=== PATIENT | male | born 1990 | race Caucasian/White ===

== ENCOUNTER → 2023-07-28 | Outpatient (CLI) | payer BC, SELFPAY ==
[2023-07-28 10:46] LABS: Anion Gap 0 (5-15); BUN 19 mg/dL (7-18); BUN/Creat Ratio 14.5 RATIO (10-20); Chloride 107 mmol/L (98-107); Creatinine, Serum 1.31 mg/dL (0.70-1.30); EST Glomerular Filtration Rate 68 mL/min (>60); Est Glom Filt Rate - Afr Amer 82 mL/min (>60); Glucose 109 mg/dL (74-106); Magnesium 2.1 mg/dL (1.6-2.6); Potassium 4.1 mmol/L (3.5-5.1); Sodium Level 136 mmol/L (136-145)
== END | disposition home or self-care (01) ==
LOC: MFPLAB 09:13
PROVIDERS: PCP Family Medicine; Visit Provider Family Medicine
DX: R25.2 Cramp and spasm (principal)
CPT/HCPCS: 36415; 80048; 83735

== ENCOUNTER → 2023-10-12 | Outpatient (CLI) | payer BC, SELFPAY ==
--- OUTSIDE RECORDS SUMMARY | 2023-10-12 11:54 | XMS RPT_ITS | CCD ---
Author Name Unknown Address [address] [place] [address] Organization [facility] Results Test Name Value Interpretation Reference Range Facil ity Encounters Encounter Date Encounter Type Care Provider Facility Start: 07-29-2017 End: 07-31-2017 Ambulatory [facility] Summary Purpose Family History No Family History Records Found Advance Directives No Advanced Directives Records Found Additional Source Comments (unrecognized sect ion and content) No Status Records Found INFORMATION SOURCE (unrecogn ized section and content) FOR RECORDS PERTAINING TO PATIENTS WHO ARE OR HAVE BEEN ENROLLED IN A CHEMICAL DEPENDENCY/SUBSTANCEABUSE PROGRAM, SOME INFORMATION MAY BE OMITTED. This clinical summary was aggregated from multiple sources. Caution should be exercised in using it in the provision of clinical care. This summary normalizes information from multiple sources, and as a consequence, information in this document may materially change the coding, format and clinical context of patient data. In addition, data may be omitted in some cases. CLINICAL DECISIONS SHOULD BE BASED ON THE PRIMARY CLINICAL RECORDS. [facility] [employer] provides no warranty or guarantee of the accuracy or completeness of information in this document.
[2023-10-12 12:49] LABS: Erythrocyte Sedimentation Rate 6 mm/hr (0-20)
[2023-10-12 12:52] LABS: Absolute Lymphocyte Count 1.74 X10^3/uL (0.83-4.51); Absolute Neutrophil Count 3.3 X10^3/uL (2.0-7.7); Basophil# 0.08 X10^3/uL; Basophil% 1.2 % (0-1); Eosinophil# 1.05 X10^3/uL; Eosinophils% 15.2 % (0-5); Hematocrit 46.1 % (40-54); Hemoglobin 16.2 g/dL (13.0-16.5); Lymphocyte # 1.74 X10^3/ul (0.83-4.51); Lymphocyte % 25.2 % (19-41); Mean Corp Hgb Conc 35.1 g/dL (32-36); Mean Corpuscular Hgb 31.6 pg (27.0-32.0); Mean Platelet Vol. 9.4 fl (6.2-12.0); Monocyte# 0.71 X10^3/uL; Monocyte% 10.3 % (0-10); NRBC Flagged by Analyzer 0 % (0-5); Neutrophil # 3.31 X10^3/uL (2.7-7.7); Neutrophil % 47.8 % (47-70); Platelet Count 264 K/mm3 (150-450); RBC Distribution Width CV 12.4 % (11.6-14.6); RBC Distribution Width SD 41.1 fl (35.1-43.9); Red Blood Count 5.12 M/mm3 (4.6-6.2); White Blood Count 6.9 K/mm3 (4.4-11.0)
[2023-10-12 13:42] LABS: AST(SGOT) 18 U/L (15-37); Alanine Aminotransfer ALT/SGPT 32 U/L (16-61); Albumin, Serum 3.6 g/dL (3.2-5.0); Alkaline Phosphatase 72 U/L (45-117); Anion Gap 4 (5-15); BUN 17 mg/dL (7-18); Calcium,Total 8.4 mg/dL (8.5-10.1); Chloride 109 mmol/L (98-107); Creatinine, Serum 1.31 mg/dL (0.70-1.30); EST Glomerular Filtration Rate 68 mL/min (>60); Est Glom Filt Rate - Afr Amer 82 mL/min (>60); Globulin 3.7 g/dL (2.2-4.2); Glucose 113 mg/dL (74-106); Protein, Total 7.3 g/dL (6.4-8.2); Sodium Level 139 mmol/L (136-145); Thyroid Stim Hormone (TSH) 1.67 uIU/mL (0.358-3.74)
[2023-10-13 15:08] LABS: Deamidated Gliadin IgA 7 units (0-19); Deamidated Gliadin IgG 2 units (0-19); Endomysial Antibody IgA Negative (Negative); Immunoglobulin A 202 mg/dL (90-386); t-Transglutaminase IgA <2 U/mL (0-3)
== END | disposition home or self-care (01) ==
LOC: MFPLAB 11:31
PROVIDERS: PCP Family Medicine; Visit Provider Family Medicine
DX: R19.7 Diarrhea, unspecified (principal)
CPT/HCPCS: 36415; 80053; 82784; 83516; 84443; 85025; 85652; 86255

== ENCOUNTER → 2023-10-18 | Outpatient (CLI) | payer BC, SELFPAY ==
--- OUTSIDE RECORDS SUMMARY | 2023-10-18 09:20 | XMS RPT_ITS | CCD ---
Author Name Unknown Address [address] [place] [address] Organization [facility] Results Test Name Value Interpretation Reference Range Facil ity Encounters Encounter Date Encounter Type Care Provider Facility Start: 07-29-2017 End: 07-31-2017 Ambulatory [facility] Summary Purpose Family History No Family [...] BE BASED ON THE PRIMARY CLINICAL RECORDS. [facility] [employer] provides no warranty or guarantee of the accuracy or completeness of information in this document.
[2023-10-23 22:07] LABS: Pancreatic Elastase, Fecal < 50 (>200)
== END | disposition home or self-care (01) ==
LOC: MFPLAB 08:49
PROVIDERS: Family Medicine; PCP Family Medicine; Visit Provider Family Medicine
DX: R19.7 Diarrhea, unspecified (principal)
CPT/HCPCS: 82274; 82653; 87506

== ENCOUNTER → 2024-01-18 | Outpatient (CLI) | payer BC, SELFPAY ==
[2024-01-20 16:09] LABS: Giardia Lamblia, Stool EIA Negative (Negative)
== END | disposition home or self-care (01) ==
PROVIDERS: PCP Family Medicine; Referring Provider Internal Medicine Gastroenterology; Visit Provider Internal Medicine Gastroenterology
DX: R19.7 Diarrhea, unspecified (principal)
CPT/HCPCS: 87329; 87493

== ENCOUNTER → 2024-02-02 | Outpatient (CLI) | payer BC, SELFPAY ==
[2024-02-02 13:06] LABS: AST(SGOT) 19 U/L (15-37); Alanine Aminotransfer ALT/SGPT 24 U/L (16-61); Albumin, Serum 3.4 g/dL (3.2-5.0); Alkaline Phosphatase 73 U/L (45-117); Bilirubin, Direct 0.13 mg/dL (0.00-0.30); Globulin 3.9 g/dL (2.2-4.2); Protein, Total 7.3 g/dL (6.4-8.2)
== END | disposition home or self-care (01) ==
LOC: LAB.FUTURE 11:12
PROVIDERS: PCP Family Medicine; Visit Provider Internal Medicine Gastroenterology
DX: K51.90 Ulcerative colitis, unspecified, without complications (principal)
CPT/HCPCS: 36415; 80076; 86480

== ENCOUNTER → 2025-05-14 | Outpatient (CLI) | payer BC, SELFPAY ==
[2025-05-14 18:07] LABS: AST(SGOT) 18 U/L (<=37); Alanine Aminotransfer ALT/SGPT 18 U/L (<=46); Albumin, Serum 4.2 g/dL (3.5-5.0); Alkaline Phosphatase 72 U/L (40-129); Anion Gap 12 (5-15); BUN 17 mg/dL (4-19); BUN/Creat Ratio 14.0 RATIO (10-20); Calcium,Total 8.9 mg/dL (7.6-11.0); Carbon Dioxide 23.4 mmol/L (21.0-32.0); Chloride 104 mmol/L (98-108); Globulin 2.9 g/dL (2.2-4.2); Glucose 85 mg/dL (70-99); Potassium 4.3 mmol/L (3.3-5.1)
[2025-05-14 18:08] LABS: Hematocrit 44.2 % (40-54); Hemoglobin 15.7 g/dL (13.0-16.5); Mean Corp Hgb Conc 35.5 g/dL (32-36); Mean Corpuscular Volume 90.8 fL (80-94); Mean Platelet Vol. 9.8 fl (6.2-12.0); Platelet Count 269 K/mm3 (150-450); RBC Distribution Width CV 12.6 % (11.6-14.6); RBC Distribution Width SD 41.2 fl (35.1-43.9); Red Blood Count 4.87 M/mm3 (4.6-6.2); White Blood Count 7.7 K/mm3 (4.4-11.0)
[2025-05-14 18:13] LABS: CRP < 3.00 mg/L (0.0-3.0)
== END | disposition home or self-care (01) ==
PROVIDERS: PCP Family Medicine; Referring Provider Internal Medicine Gastroenterology; Visit Provider Internal Medicine Gastroenterology
DX: K50.90 Crohn's disease, unspecified, without complications (principal); M54.9 Dorsalgia, unspecified
CPT/HCPCS: 36415; 80053; 81374; 85027; 85652; 86140

== ENCOUNTER → 2025-06-06 | Outpatient (CLI) | payer BC, SELFPAY ==
[2025-06-06 15:34] LABS: Hematocrit 45.3 % (40-54); Hemoglobin 15.6 g/dL (13.0-16.5); Immature Granulocytes Count 0.030 X10^3/uL (0.0-0.0); Mean Corp Hgb Conc 34.4 g/dL (32-36); Mean Corpuscular Volume 92.8 fL (80-94); Mean Platelet Vol. 9.1 fl (6.2-12.0); NRBC Flagged by Analyzer 0 % (0-5); Platelet Count 257 K/mm3 (150-450); RBC Distribution Width CV 13.3 % (11.6-14.6); RBC Distribution Width SD 45.5 fl (35.1-43.9); Red Blood Count 4.88 M/mm3 (4.6-6.2); White Blood Count 8.4 K/mm3 (4.4-11.0)
[2025-06-06 15:52] LABS: AST(SGOT) 20 U/L (<=37); Alanine Aminotransfer ALT/SGPT 20 U/L (<=46); Albumin, Serum 4.0 g/dL (3.5-5.0); Alkaline Phosphatase 61 U/L (40-129); Anion Gap 11 (5-15); BUN 22 mg/dL (4-19); BUN/Creat Ratio 19.0 RATIO (10-20); Calcium,Total 8.7 mg/dL (7.6-11.0); Carbon Dioxide 24.1 mmol/L (21.0-32.0); Chloride 107 mmol/L (98-108); Globulin 2.7 g/dL (2.2-4.2); Glucose 101 mg/dL (70-99); Potassium 4.0 mmol/L (3.3-5.1)
[2025-06-06 15:53] LABS: CRP < 3.00 mg/L (0.0-3.0)
[2025-06-11 17:08] LABS: Anti-Chromatin <0.2 AI (0.0-0.9); Anti-Jo <0.2 AI (0.0-0.9); Anti-dsDNA Ab <1 IU/mL (0-9); Egg, Whole <0.10 kU/L (Class 0); Mussels <0.10 kU/L (Class 0); SJOGREN'S Anti-SS-A test < 0.2 AI (0.0-0.9); SJOGREN'S Anti-SS-B test < 0.2 AI (0.0-0.9)
[2025-06-12 13:08] LABS: ACCA 26 units (0-90); ALCA 18 units (0-60); AMCA 71 units (0-100); Cytoplasmic Ab (C-ANCA) <1:20 titer (Neg:<1:20); Immunoglobulin A 181 mg/dL (90-386); Immunoglobulin G 965 mg/dL (603-1613); Immunoglobulin M 134 mg/dL (20-172); Perinuclear Ab (P-ANCA) <1:20 titer (Neg:<1:20); QNTFERON TB Mitogen Value > 10.00 IU/mL (.); QNTFERON TB Nil Value 0.03 IU/mL (.); QNTFERON TB1+ Ag Value 0.03 IU/mL (.); QNTFERON TB2+ Ag Value 0.03 IU/mL (.); QNTIFERON TB Positive Criteria Negative (Negative)
== END | disposition home or self-care (01) ==
PROVIDERS: PCP Family Medicine; Referring Provider Internal Medicine Gastroenterology; Visit Provider Internal Medicine Gastroenterology
DX: K51.90 Ulcerative colitis, unspecified, without complications (principal)
CPT/HCPCS: 36415; 80053; 82784; 82785; 83516; 85025; 85652; 86003; 86005; 86036; 86037; 86140; 86225; 86235; 86255; 86480; 86671

== ENCOUNTER → 2025-06-13 | Outpatient (CLI) | payer BC, SELFPAY | END | disposition home or self-care (01) | LOC: LABSPEC 15:17 | PROVIDERS: PCP Family Medicine; Referring Provider Internal Medicine Gastroenterology; Visit Provider Internal Medicine Gastroenterology | DX: K51.90 Ulcerative colitis, unspecified, without complications (principal) | CPT/HCPCS: 83630; 87493 ==

== ENCOUNTER → 2025-06-21 | Outpatient (CLI) | payer BC, SELFPAY ==
--- OUTSIDE RECORDS SUMMARY | 2025-06-21 11:52 | XMS RPT_ITS | CCD ---
Author Organization [facility] Care Team Providers Care Drivers' Cash Clerk Name Role Phone Unavailable Primary Care Provider UnavailJUSTIN Solorzano Attending Unavailable Rodriguez KATHLEEN, Dr. Salinas Primary Care Provider Daisy KATHLEEN, Dr. Louise Attending Provider Daisy KATHLEEN, Dr. Louise Referring Provider Rodriguez KATHLEEN, Dr. Salinas Primary Care Physicia n Daisy KATHLEEN, Dr. Louise Attending Physician Dr. Channing Bains DO Attending Physician [phone] Dr. Brad Frias MD Referring Provider Dr. Channing Bains DO Referring Provider Dani Villa Attending Unavailable Dani Villa Referring Unavailable Brad Frias Primary Care Unavailable Channing Bains Attending Unavailable Channing Bains Referring Unavailable Brad Frias Primary Care Unavailable Channing Bains Attending Unavailable Channing Bains Referring Unavailable Brad Frias Primary Care Unavailable Brad Frias Referring Unavailable Channing Bains Attending Unavailable Brad Frias Primary Care Unavailable Medications Current Medications Medication Drug Class(es) Dates Sig (Normalized) Sig (Original) atropine sulfate 0.025 mg / diphenoxylate hydrochloride 2.5 mg oral tablet (4 sources) Anticholinergic, Cholinergic Muscarinic Antagonist, Antidiarrheal Start: 06-06-2025 End: 06-06-2025 budesonide 3 mg delayed release oral capsule (2 sources) Corticosteroid Start: 06-06-2025 take 3 capsules by mouth once daily mesalamine 1200 mg delayed release oral tablet (2 sources) Aminosalicylate Start: 06-06-2025 take 3 tablets by mouth once daily predniSONE 10 mg oral tablet (3 sources) Start: 06-06-2025 take 5 tablets by mouth once daily Start: 04-17-2025 predniSONE (DE LTASONE) 10 mg tablet Take 4 tabs daily for 3 days, then 2 tabs daily for 3 days, then 1 tab daily for 3 days with food. 21 tablet 04/17/2025 Active triamcinolone acetonide 1 mg/ml topical cream (1 source) Corticosteroid Start: 04-17-2025 End: 04-24-2025 triamcinolone acetonide (KENALOG) 0.1 % cream Apply 1 application to affected area three times a day for 7 days. Apply sparingly to area for rash/itching. 80 g 04/17/2025 04/24/2025 Active Problems Problem Classification Problem Date Documented Da te Episodic/Chronic Other gastrointestinal disorders (1 source) Irritable bowel syndrome without diarrhea; Translations: [Irritable bowel syndrome, unspecified] Onset: 06-13-2025 Chronic Other skin disorders (1 source) Eruption; Translations: [Rash and other nonspecific skin eruption] 04-17-2025 Episodic Other skin disorders (1 source) Rash and other nonspecific skin eruption; Translations: [Rash] Onset: 04-17-2025 Episodic Regional enteritis and ulcerative colitis (7 sources) Ulcerative colitis; Translations: [Ulcerative colitis, unspecified, without complications] Onset: 05-23-2025 06-06-2025 Chronic Results Test Name Value Interpretation Reference Range Facility CDIFF (PCR)on 06-13-2025 CDIFF Pending [id number] Presumptive Negative *for epidemiolologic???use C. Diff PCR Negative- No toxigenic C. Diff Detected Normal [facility] Comment on above: Performed By: #### L 3400.8000, L3200.1100, L100.0100, L3300.1200, L101.9900, L501.6710, L3100.5440, L5500.0550, L500.4050, L3410.2400, L2100.0000 #### [facility] [address] [place], [address] Clostridium difficile detect ion by polymerase chain reactionOrdered By: Channing Bains on 06-13-2025 C. difficile DNA SIDDHARTH+probe Ql (Unsp spec) [facility] Stool Lactoferrin/WBCon 05-20 WBCST Normal Reference Range = Negative Fecal WBC Lactoferrin A Positive: Fecal WBC Lactoferrin present A Normal [facility] Comment on above: Performed By: #### L 3400.8000, L3200.1100, L100.0100, L3300.1200, L101.9900, L501.6710, L3100.5440, L5500.0550, L500.4050, L3410.2400, L2100.0000 #### [facility] [address] [place], [address] Stool lactoferrin detection by immunoassayOrdered By: Channing Bains on 06-13-2025 Lactoferrin IA Ql (Stl) [facility] ANCAon 06-12-2025 Atypical pANCA <1:20 Normal Neg:<1:20 [facility] Comment on above: Result Comment: The atypical pANCA pattern has been observed in a significant percentage of patients with ulcerative colitis, primary sclerosing cholangitis and autoimmune hepatitis. Performed at: [facility] [address] [id number] Language Teacher: Dani Tyson PhD, Phone: [phone] Performed at: [facility] [address] [id number] Language Teacher: Fortunato Floyd MD, Phone: [phone] Performed By: #### L 3400.8000, L3200.1100, L100.0100, L3300.1200, L101.9900, L501.6710, L3100.5440, L5500.0550, L500.4050, L3410.2400, L2100.0000 #### [facility] [address] [place], [address] Cytoplasmic Ab <1:20 Normal Neg:<1:20 [facility] Comment on above: Performed By: #### L 3400.8000, L3200.1100, L100.0100, L3300.1200, L101.9900, L501.6710, L3100.5440, L5500.0550, L500.4050, L3410.2400, L2100.0000 #### [facility] [address] [place], [address] Perinuclear Ab. <1:20 Normal Neg:<1:20 [facility] Comment on above: Result Comment: The presence of positive fluorescence exhibiting P-ANCA or C-ANCA patterns alone is not specific for the diagnosis of Mayito's Granulomatosis (WG) or microscopic polyangiitis. Decisions about treatment should not be based solely on ANCA IFA results. The [employer] ANCA [employer] Consensus recommends follow up testing of positive sera with both OK- 3 and MPO-ANCA enzyme immunoassays. As many as 5% serum samples are positive only by EIA. Ref. AM J Clin Pathol 1999;111:507-513. Performed By: #### L 3400.8000, L3200.1100, L100.0100, L3300.1200, L101.9900, L501.6710, L3100.5440, L5500.0550, L500.4050, L3410.2400, L2100.0000 #### [facility] [address] [place], [address] Celiac Disease Profileon ENDOMYSIAL IGA Negative Normal Negative [facility] Comment on above: Performed By: #### L 3400.8000, L3200.1100, L100.0100, L3300.1200, L101.9900, L501.6710, L3100.5440, L5500.0550, L500.4050, L3410.2400, L2100.0000 #### [facility] [address] [place], [address] tTG IGA <2 Normal 0-3 [facility] Comment on above: Result Comment: Nega tive 0 - 3 Weak Positive 4 - 10 Positive >10 Tissue Transglutaminase (tTG) has been identified as the endomysial antigen. Studies have demonstr- ated that endomysial IgA antibodies have over 99% specificity for gluten sensitive enteropathy. Performed By: #### L 3400.8000, L3200.1100, L100.0100, L3300.1200, L101.9900, L501.6710, L3100.5440, L5500.0550, L500.4050, L3410.2400, L2100.0000 #### [facility] [address] [place], [address] Immunoglobulins G/A/M/Jose IMMUNOGLOB A QN 181 mg/dL Normal 90-386 [facility] Comment on above: Order Comment: N Performed By: #### L 3400.8000, L3200.1100, L100.0100, L3300.1200, L101.9900, L501.6710, L3100.5440, L5500.0550, L500.4050, L3410.2400, L2100.0000 #### [facility] [address] [place], [address] IMMUNOGLOB E QN 26 IU/mL Normal 6-495 [facility] Comment on above: Order Comment: N Performed By: #### L 3400.8000, L3200.1100, L100.0100, L3300.1200, L101.9900, L501.6710, L3100.5440, L5500.0550, L500.4050, L3410.2400, L2100.0000 #### [facility] [address] [place], [address] IMMUNOGLOB G QN 965 mg/dL Normal 603-1613 [facility] Comment on above: Order Comment: N Performed By: #### L 3400.8000, L3200.1100, L100.0100, L3300.1200, L101.9900, L501.6710, L3100.5440, L5500.0550, L500.4050, L3410.2400, L2100.0000 #### [facility] [address] [place], [address] IMMUNOGLOB M QN 134 mg/dL Normal 20-172 [facility] Comment on above: Order Comment: N Performed By: #### L 3400.8000, L3200.1100, L100.0100, L3300.1200, L101.9900, L501.6710, L3100.5440, L5500.0550, L500.4050, L3410.2400, L2100.0000 #### [facility] [address] [place], [place], [address] L2100.0000on 06-12-2025 ACCA 26 units Normal 0-90 [facility] Comment on above: Result Comment: Nega tive: <80 Equivocal: 80-90 Positive: >90 Performed By: #### L 3400.8000, L3200.1100, L100.0100, L3300.1200, L101.9900, L501.6710, L3100.5440, L5500.0550, L500.4050, L3410.2400, L2100.0000 #### [facility] [address] [place], [place], [address] ALCA 18 units Normal 0-60 [facility] Comment on above: Result Comment: Nega tive:<55 Equivocal: 55-60 Positive: >60 Performed By: #### L 3400.8000, L3200.1100, L100.0100, L3300.1200, L101.9900, L501.6710, L3100.5440, L5500.0550, L500.4050, L3410.2400, L2100.0000 #### [facility] [address] [place], [place], [id number] AMCA 71 units Normal 0-100 [facility] Comment on above: Result Comment: Nega tive: <90 Equivocal: 90-100 Positive: >100 This test was developed and its performance characteristics determined by [employer]. It has not been cleared or approved by the Food and Drug Administration. The FDA has determined that such clearance or approval is not necessary. Performed By: #### L 3400.8000, L3200.1100, L100.0100, L3300.1200, L101.9900, L501.6710, L3100.5440, L5500.0550, L500.4050, L3410.2400, L2100.0000 #### [facility] [address] [place], [place], [address] Atypical pANCA Negative Normal Negative [facility] Comment on above: Performed By: #### L 3400.8000, L3200.1100, L100.0100, L3300.1200, L101.9900, L501.6710, L3100.5440, L5500.0550, L500.4050, L3410.2400, L2100.0000 #### [facility] [address] [place], [address] COMMENT Comment Normal . [facility] Comment on above: Result Comment: Pema noreen is not suggestive of Inflammatory Bowel Disease Performed By: #### L 3400.8000, L3200.1100, L100.0100, L3300.1200, L101.9900, L501.6710, L3100.5440, L5500.0550, L500.4050, L3410.2400, L2100.0000 #### [facility] [address] [place], [place], [address] Karishma 10 units Normal 0-50 [facility] Comment on above: Result Comment: Nega tive: <45 Equivocal: 45-50 Positive: >50 Performed By: #### L 3400.8000, L3200.1100, L100.0100, L3300.1200, L101.9900, L501.6710, L3100.5440, L5500.0550, L500.4050, L3410.2400, L2100.0000 #### [facility] [address] [place], [address] Quantiferon TB-Gold+on 06-12 QFT MITOGEN ADRIA > 10.00 Normal . [facility] Comment on above: Performed By: #### L 3400.8000, L3200.1100, L100.0100, L3300.1200, L101.9900, L501.6710, L3100.5440, L5500.0550, L500.4050, L3410.2400, L2100.0000 #### [facility] [address] [place], [place], [id number] (473) QFT NIL VALUE 0.03 IU/mL Normal . [facility] Comment on above: Performed By: #### L 3400.8000, L3200.1100, L100.0100, L3300.1200, L101.9900, L501.6710, L3100.5440, L5500.0550, L500.4050, L3410.2400, L2100.0000 #### [facility] [address] [place], [address] ([phone]) QFT TB GOLD+ Comment Normal . [facility] Comment on above: Result Comment: Jeff tiFERON-TB Gold Plus is a qualitative indirect test for M tuberculosis infection (including disease) and is intended for use in conjunction with risk assessment, radiography, and other medical and diagnostic evaluations. The QuantiFERON-TB Gold Plus result is determined by subtracting the Nil value from either TB antigen (Ag) value. The Mitogen tube serves as a control for the test. Performed By: #### L 3400.8000, L3200.1100, L100.0100, L3300.1200, L101.9900, L501.6710, L3100.5440, L5500.0550, L500.4050, L3410.2400, L2100.0000 #### [facility] [address] [place], [address] QFT TB POS CRIT Negative Normal Negative [facility] Comment on above: Result Comment: No r esponse to M tuberculosis antigens detected. Infection with M tuberculosis is unlikely, but high risk individuals should be considered for additional testing (ATS/IDSA/CDC Clinical Practice Guidelines, 2017). The reference range is an Antigen minus Nil result of <0.35 IU/mL. The specimen received for QuantiFERON testing was incubated by the ordering institution. Specific procedures outlined in our Directory of Services and in the package insert for the QuantiFERON Gold (In Tube) test must be followed to enable for proper stimulation of cells for the production of interferon gamma. Chemiluminescence immunoassay methodology Performed By: #### L 3400.8000, L3200.1100, L100.0100, L3300.1200, L101.9900, L501.6710, L3100.5440, L5500.0550, L500.4050, L3410.2400, L2100.0000 #### [facility] [address] [place], [place], [address] QFT TB1+ AG ADRIA 0.03 IU/mL Normal . [facility] Comment on above: Performed By: #### L 3400.8000, L3200.1100, L100.0100, L3300.1200, L101.9900, L501.6710, L3100.5440, L5500.0550, L500.4050, L3410.2400, L2100.0000 #### [facility] [address] [place], [place], [id number] QFT TB2+ AG ADRIA 0.03 IU/mL Normal . [facility] Comment on above: Performed By: #### L 3400.8000, L3200.1100, L100.0100, L3300.1200, L101.9900, L501.6710, L3100.5440, L5500.0550, L500.4050, L3410.2400, L2100.0000 #### [facility] [address] [place], [place], [address] ANTONIETTA Comprehensive Panelon ANTI-DNA (DS)AB <1 Normal 0-9 [facility] Comment on above: Result Comment: Nega tive <5 Equivocal 5 - 9 Positive >9 Performed By: #### L 3400.8000, L3200.1100, L100.0100, L3300.1200, L101.9900, L501.6710, L3100.5440, L5500.0550, L500.4050, L3410.2400, L2100.0000 #### [facility] [address] [place], [address] ANTI-SS-A < 0.2 Normal 0.0-0.9 [facility] Comment on above: Performed By: #### L 3400.8000, L3200.1100, L100.0100, L3300.1200, L101.9900, L501.6710, L3100.5440, L5500.0550, L500.4050, L3410.2400, L2100.0000 #### [facility] [address] [place], [address] ANTI-SS-B < 0.2 Normal 0.0-0.9 [facility] Comment on above: Performed By: #### L 3400.8000, L3200.1100, L100.0100, L3300.1200, L101.9900, L501.6710, L3100.5440, L5500.0550, L500.4050, L3410.2400, L2100.0000 #### [facility] [address] [place], [address] Allergen, Food Profile 1406-11-2025 BEEF <0.10 Normal Class 0 [facility] Comment on above: Performed By: #### L 3400.8000, L3200.1100, L100.0100, L3300.1200, L101.9900, L501.6710, L3100.5440, L5500.0550, L500.4050, L3410.2400, L2100.0000 #### [facility] [address] [place], [address] CHOCOLATE <0.10 Normal Class 0 [facility] Comment on above: Performed By: #### L 3400.8000, L3200.1100, L100.0100, L3300.1200, L101.9900, L501.6710, L3100.5440, L5500.0550, L500.4050, L3410.2400, L2100.0000 #### [facility] [address] [place], [address] CODFISH <0.10 Normal Class 0 [facility] Comment on above: Performed By: #### L 3400.8000, L3200.1100, L100.0100, L3300.1200, L101.9900, L501.6710, L3100.5440, L5500.0550, L500.4050, L3410.2400, L2100.0000 #### [facility] [address] [place], [address] COMMENT Comment Normal . [facility] Comment on above: Result Comment: Miguel lewis of Specific IgE Class Description of Class ----- < 0.10 0 Negative 0.10 - 0.31 0/I Equivocal/Low 0.32 - 0.55 I Low 0.56 - 1.40 II Moderate 1.41 - 3.90 III High 3.91 - 19.00 IV Very High 19.01 - 100.00 V Very High >100.00 Very High Performed By: #### L 3400.8000, L3200.1100, L100.0100, L3300.1200, L101.9900, L501.6710, L3100.5440, L5500.0550, L500.4050, L3410.2400, L2100.0000 #### [facility] [address] [place], [address] CORN <0.10 Normal Class 0 [facility] Comment on above: Performed By: #### L 3400.8000, L3200.1100, L100.0100, L3300.1200, L101.9900, L501.6710, L3100.5440, L5500.0550, L500.4050, L3410.2400, L2100.0000 #### [facility] [address] [place], [place], [id number] EGG, WHOLE <0.10 Normal Class 0 [facility] Comment on above: Result Comment: Perf ormed at: [facility] [address] [id number] Language Teacher: Dani Tyson PhD, Phone: [phone] Performed at: [facility] [address] [id number] Language Teacher: Fortunato Floyd MD, Phone: [phone] Performed By: #### L 3400.8000, L3200.1100, L100.0100, L3300.1200, L101.9900, L501.6710, L3100.5440, L5500.0550, L500.4050, L3410.2400, L2100.0000 #### [facility] [address] [place], [place], [id number] MILK (COW) 0.14 kU/L Abnormal Class 0/I [facility] Comment on above: Performed By: #### L 3400.8000, L3200.1100, L100.0100, L3300.1200, L101.9900, L501.6710, L3100.5440, L5500.0550, L500.4050, L3410.2400, L2100.0000 #### [facility] [address] [place], [place], [address] MUSSELS <0.10 Normal Class 0 [facility] Comment on above: Performed By: #### L 3400.8000, L3200.1100, L100.0100, L3300.1200, L101.9900, L501.6710, L3100.5440, L5500.0550, L500.4050, L3410.2400, L2100.0000 #### [facility] [address] [place], [place], [address] PEANUT <0.10 Normal Class 0 [facility] Comment on above: Performed By: #### L 3400.8000, L3200.1100, L100.0100, L3300.1200, L101.9900, L501.6710, L3100.5440, L5500.0550, L500.4050, L3410.2400, L2100.0000 #### [facility] [address] [place], [place], [id number] PORK <0.10 Normal Class 0 [facility] Comment on above: Performed By: #### L 3400.8000, L3200.1100, L100.0100, L3300.1200, L101.9900, L501.6710, L3100.5440, L5500.0550, L500.4050, L3410.2400, L2100.0000 #### [facility] [address] [place], [place], [id number] SALMON <0.10 Normal Class 0 [facility] Comment on above: Performed By: #### L 3400.8000, L3200.1100, L100.0100, L3300.1200, L101.9900, L501.6710, L3100.5440, L5500.0550, L500.4050, L3410.2400, L2100.0000 #### [facility] [address] [place], [place], [id number] SHRIMP <0.10 Normal Class 0 [facility] Comment on above: Performed By: #### L 3400.8000, L3200.1100, L100.0100, L3300.1200, L101.9900, L501.6710, L3100.5440, L5500.0550, L500.4050, L3410.2400, L2100.0000 #### [facility] [address] [place], [place], [id number] SOYBEAN <0.10 Normal Class 0 [facility] Comment on above: Performed By: #### L 3400.8000, L3200.1100, L100.0100, L3300.1200, L101.9900, L501.6710, L3100.5440, L5500.0550, L500.4050, L3410.2400, L2100.0000 #### [facility] [address] [facility] [place], [place], [address] TUNA <0.10 Normal Class 0 [facility] Comment on above: Performed By: #### L 3400.8000, L3200.1100, L100.0100, L3300.1200, L101.9900, L501.6710, L3100.5440, L5500.0550, L500.4050, L3410.2400, L2100.0000 #### [facility] [address] [facility] [place], [place], [id number] WHEAT 0.14 kU/L Abnormal Class 0/I [facility] Comment on above: Performed By: #### L 3400.8000, L3200.1100, L100.0100, L3300.1200, L101.9900, L501.6710, L3100.5440, L5500.0550, L500.4050, L3410.2400, L2100.0000 #### [facility] [address] [place], [place], [id number] Absolute lymphocyte countOrd ered By: Channing Bains on 06-06-2025 Lymphocytes Auto (Unsp spec) [#/Vol] 1.09 10*3/uL 0.83-4.51 [facility] Absolute neutrophil countOrd ered By: Channing Bains on 06-06-2025 Neutrophils (Bld) [#/Vol] 6.1 10*3/uL 2.0-7.7 [facility] Anion gap in Serum or Plasma Ordered By: Channing Bains on 06-06-2025 Anion gap [Moles/Vol] 11 mmol/L 5-15 [facility] Automated lymphocyte count a s percentage of total leukocytesOrdered By: Channing Bains on 06-06-2025 Lymphocytes/100 WBC Auto (Unsp spec) 13.0 % Low - [facility] BUN/creatinine ratioOrdered By: Channing Bains on 06-06-2025 Urea nitrogen/Creatinine [Mass ratio] 19.0 mg/mg 10- [facility] Basophil percentageOrdered B y: Channing Bains on 06-06-2025 Basophils/100 WBC (Bld) 0.4 % 0-1 [facility] Bilirubin, totalOrdered By: Channing Bains on 06-06-2025 Bilirubin [Mass/Vol] 0.37 mg/dL 0.00-1.30 [facility] CBC W/Diff, Automatedon 05-19 Absolute Lymph 1.09 X10 3/uL Normal 0.83-4.51 [facility] Comment on above: Performed By: #### L 3400.8000, L3200.1100, L100.0100, L3300.1200, L101.9900, L501.6710, L3100.5440, L5500.0550, L500.4050, L3410.2400, L2100.0000 #### [facility] [address] [place], [place], [id number] Absolute Neut 6.1 X10 3/uL Normal 2.0-7.7 [facility] Comment on above: Performed By: #### L 3400.8000, L3200.1100, L100.0100, L3300.1200, L101.9900, L501.6710, L3100.5440, L5500.0550, L500.4050, L3410.2400, L2100.0000 #### [facility] [address] [place], [place], [id number] Basophils/100 WBC (Bld) 0.4 % Normal 0-1 [facility] Comment on above: Performed By: #### L 3400.8000, L3200.1100, L100.0100, L3300.1200, L101.9900, L501.6710, L3100.5440, L5500.0550, L500.4050, L3410.2400, L2100.0000 #### [facility] [address] [place], [place], [id number] (954) Eosinophils/100 WBC (Bld) 0.6 % Normal 0-5 [facility] Comment on above: Performed By: #### L 3400.8000, L3200.1100, L100.0100, L3300.1200, L101.9900, L501.6710, L3100.5440, L5500.0550, L500.4050, L3410.2400, L2100.0000 #### [facility] [address] [place], [address] ([phone]) Erythrocyte distribution width (RBC) [Ratio] 13.3 % Normal 11.6-14.6 [facility] Comment on above: Performed By: #### L 3400.8000, L3200.1100, L100.0100, L3300.1200, L101.9900, L501.6710, L3100.5440, L5500.0550, L500.4050, L3410.2400, L2100.0000 #### [facility] [address] [place], [address] (301) Hematocrit (Bld) [Volume fraction] 45.3 % Normal 40-54 [facility] Comment on above: Performed By: #### L 3400.8000, L3200.1100, L100.0100, L3300.1200, L101.9900, L501.6710, L3100.5440, L5500.0550, L500.4050, L3410.2400, L2100.0000 #### [facility] [address] [place], [address] (320) Hemoglobin (Bld) [Mass/Vol] 15.6 g/dL Normal 13.0-16. 5 [facility] Comment on above: Performed By: #### L 3400.8000, L3200.1100, L100.0100, L3300.1200, L101.9900, L501.6710, L3100.5440, L5500.0550, L500.4050, L3410.2400, L2100.0000 #### [facility] [address] [place], [address] IG% 0.400 Normal 0.0-0.9 [facility] Comment on above: Result Comment: IG% - Immature Granulocytes (promyelocytes, myelocytes and metamyelocytes) > 1% indicates that a LEFT SHIFT is Present. Performed By: #### L 3400.8000, L3200.1100, L100.0100, L3300.1200, L101.9900, L501.6710, L3100.5440, L5500.0550, L500.4050, L3410.2400, L2100.0000 #### [facility] [address] [place], [address] Lymphocytes/100 WBC (Bld) 13.0 % Low 19-41 [facility] Comment on above: Performed By: #### L 3400.8000, L3200.1100, L100.0100, L3300.1200, L101.9900, L501.6710, L3100.5440, L5500.0550, L500.4050, L3410.2400, L2100.0000 #### [facility] [address] [facility] [place], [address] MCH (RBC) [Entitic mass] 32.0 pg Normal 27.0-32.0 [facility] Comment on above: Performed By: #### L 3400.8000, L3200.1100, L100.0100, L3300.1200, L101.9900, L501.6710, L3100.5440, L5500.0550, L500.4050, L3410.2400, L2100.0000 #### [facility] [address] [place], [address] MCHC (RBC) [Mass/Vol] 34.4 g/dL Normal 32-36 [facility] Comment on above: Performed By: #### L 3400.8000, L3200.1100, L100.0100, L3300.1200, L101.9900, L501.6710, L3100.5440, L5500.0550, L500.4050, L3410.2400, L2100.0000 #### [facility] [address] [facility] [place], [address] MCV (RBC) [Entitic vol] 92.8 fL Normal 80-94 [facility] Comment on above: Performed By: #### L 3400.8000, L3200.1100, L100.0100, L3300.1200, L101.9900, L501.6710, L3100.5440, L5500.0550, L500.4050, L3410.2400, L2100.0000 #### [facility] [address] [facility] [place], [address] Monocytes/100 WBC (Bld) 12.9 % High 0-10 [facility] Comment on above: Performed By: #### L 3400.8000, L3200.1100, L100.0100, L3300.1200, L101.9900, L501.6710, L3100.5440, L5500.0550, L500.4050, L3410.2400, L2100.0000 #### [facility] [address] [facility] [place], [address] Neutrophils/100 WBC (Bld) 72.7 % High 47-70 [facility] Comment on above: Performed By: #### L 3400.8000, L3200.1100, L100.0100, L3300.1200, L101.9900, L501.6710, L3100.5440, L5500.0550, L500.4050, L3410.2400, L2100.0000 #### [facility] [address] [facility] [place], [address] Nucleated RBC (Bld) [#/Vol] 0 10*3/uL Normal 0-5 [facility] Comment on above: Performed By: #### L 3400.8000, L3200.1100, L100.0100, L3300.1200, L101.9900, L501.6710, L3100.5440, L5500.0550, L500.4050, L3410.2400, L2100.0000 #### [facility] [address] [place], [address] Platelet mean volume (Bld) [Entitic vol] 9.1 fL Normal 6.2-12.0 [facility] Comment on above: Performed By: #### L 3400.8000, L3200.1100, L100.0100, L3300.1200, L101.9900, L501.6710, L3100.5440, L5500.0550, L500.4050, L3410.2400, L2100.0000 #### [facility] [address] [place], [address] Platelets (Bld) [#/Vol] 257 10*3/uL Normal 150-450 [facility] Comment on above: Performed By: #### L 3400.8000, L3200.1100, L100.0100, L3300.1200, L101.9900, L501.6710, L3100.5440, L5500.0550, L500.4050, L3410.2400, L2100.0000 #### [facility] [address] [place], [address] RBC (Bld) [#/Vol] 4.88 10*6/uL Normal 4.6-6.2 [facility] Comment on above: Performed By: #### L 3400.8000, L3200.1100, L100.0100, L3300.1200, L101.9900, L501.6710, L3100.5440, L5500.0550, L500.4050, L3410.2400, L2100.0000 #### [facility] [address] [place], [address] RDW SD 45.5 fl High 35.1-43.9 [facility] Comment on above: Performed By: #### L 3400.8000, L3200.1100, L100.0100, L3300.1200, L101.9900, L501.6710, L3100.5440, L5500.0550, L500.4050, L3410.2400, L2100.0000 #### [facility] [address] [place], [place], [id number] WBC (Bld) [#/Vol] 8.4 10*3/uL Normal 4.4-11.0 [facility] Comment on above: Performed By: #### L 3400.8000, L3200.1100, L100.0100, L3300.1200, L101.9900, L501.6710, L3100.5440, L5500.0550, L500.4050, L3410.2400, L2100.0000 #### [facility] [address] [place], [place], [id number] CRPon 06-06-2025 C-REACTIVE PROT < 3.00 Normal 0.0-3.0 [facility] Comment on above: Performed By: #### L 3400.8000, L3200.1100, L100.0100, L3300.1200, L101.9900, L501.6710, L3100.5440, L5500.0550, L500.4050, L3410.2400, L2100.0000 #### [facility] [address] [place], [place], [id number] Carbon dioxide, total [Moles /volume] in Central venous bloodOrdered By: Channing Bains on 06-06-2025 CO2 [Moles/Vol] 24.1 mmol/L 21.0-32.0 [facility] Chitobioside IgA antibody as sayOrdered By: Channing Bains on 06-06-2025 Chitobioside IgA IA Qn 26 units 0-90 [facility] Comment on above: Negative: <80 Equivo cady: 80-90 Positive: >90 Chloride assayOrdered By: Ra shruthi Bains on 06-06-2025 Chloride [Moles/Vol] 107 mmol/L 98-108 [facility] Comprehensive Metabolic Prof ilon 06-06-2025 Albumin [Mass/Vol] 4.0 g/dL Normal 3.5-5.0 [facility] Comment on above: Performed By: #### L 3400.8000, L3200.1100, L100.0100, L3300.1200, L101.9900, L501.6710, L3100.5440, L5500.0550, L500.4050, L3410.2400, L2100.0000 #### [facility] [address] [place], [address] Albumin/Globulin [Mass ratio] 1.5 {ratio} Normal 0.9-2.4 [facility] Comment on above: Performed By: #### L 3400.8000, L3200.1100, L100.0100, L3300.1200, L101.9900, L501.6710, L3100.5440, L5500.0550, L500.4050, L3410.2400, L2100.0000 #### [facility] [address] [place], [place], [id number] ALK PHOS 61 U/L Normal 40-129 [facility] Comment on above: Performed By: #### L 3400.8000, L3200.1100, L100.0100, L3300.1200, L101.9900, L501.6710, L3100.5440, L5500.0550, L500.4050, L3410.2400, L2100.0000 #### [facility] [address] [place], [place], [id number] ALT [Catalytic activity/Vol] 20 U/L Normal <=46 [facility] Comment on above: Performed By: #### L 3400.8000, L3200.1100, L100.0100, L3300.1200, L101.9900, L501.6710, L3100.5440, L5500.0550, L500.4050, L3410.2400, L2100.0000 #### [facility] [address] [place], [address] AST [Catalytic activity/Vol] 20 U/L Normal <=37 [facility] Comment on above: Performed By: #### L 3400.8000, L3200.1100, L100.0100, L3300.1200, L101.9900, L501.6710, L3100.5440, L5500.0550, L500.4050, L3410.2400, L2100.0000 #### [facility] [address] [place], [address] Bilirubin [Mass/Vol] 0.37 mg/dL Normal 0.00-1.30 [facility] Comment on above: Performed By: #### L 3400.8000, L3200.1100, L100.0100, L3300.1200, L101.9900, L501.6710, L3100.5440, L5500.0550, L500.4050, L3410.2400, L2100.0000 #### [facility] [address] [place], [address] BUN/CRE 19.0 RATIO Normal 10-20 [facility] Comment on above: Performed By: #### L 3400.8000, L3200.1100, L100.0100, L3300.1200, L101.9900, L501.6710, L3100.5440, L5500.0550, L500.4050, L3410.2400, L2100.0000 #### [facility] [address] [place], [address] Calcium [Mass/Vol] 8.7 mg/dL Normal 7.6-11.0 [facility] Comment on above: Performed By: #### L 3400.8000, L3200.1100, L100.0100, L3300.1200, L101.9900, L501.6710, L3100.5440, L5500.0550, L500.4050, L3410.2400, L2100.0000 #### [facility] [address] [place], [address] Chloride [Moles/Vol] 107 mmol/L Normal 98-108 [facility] Comment on above: Performed By: #### L 3400.8000, L3200.1100, L100.0100, L3300.1200, L101.9900, L501.6710, L3100.5440, L5500.0550, L500.4050, L3410.2400, L2100.0000 #### [facility] [address] [place], [address] CO2 [Moles/Vol] 24.1 mmol/L Normal 21.0-32.0 [facility] Comment on above: Performed By: #### L 3400.8000, L3200.1100, L100.0100, L3300.1200, L101.9900, L501.6710, L3100.5440, L5500.0550, L500.4050, L3410.2400, L2100.0000 #### [facility] [address] [place], [address] Creatinine [Mass/Vol] 1.15 mg/dL Normal 0.70-1.20 [facility] Comment on above: Performed By: #### L 3400.8000, L3200.1100, L100.0100, L3300.1200, L101.9900, L501.6710, L3100.5440, L5500.0550, L500.4050, L3410.2400, L2100.0000 #### [facility] [address] [place], [address] GAP 11 Normal 5-15 [facility] Comment on above: Performed By: #### L 3400.8000, L3200.1100, L100.0100, L3300.1200, L101.9900, L501.6710, L3100.5440, L5500.0550, L500.4050, L3410.2400, L2100.0000 #### [facility] [address] [place], [address] GFR/1.73 sq M.predicted among non-blacks MDRD (S/P/Bld) [Vol rate/Area] 86 mL/min/{1.73_m2} Normal >60 [facility] Comment on above: Result Comment: mL/m in/1.73m2 CKD-EPI Creatinine Equation (2020) Performed By: #### L 3400.8000, L3200.1100, L100.0100, L3300.1200, L101.9900, L501.6710, L3100.5440, L5500.0550, L500.4050, L3410.2400, L2100.0000 #### [facility] [address] [place], [address] Globulin (S) [Mass/Vol] 2.7 g/dL Normal 2.2-4.2 [facility] Comment on above: Performed By: #### L 3400.8000, L3200.1100, L100.0100, L3300.1200, L101.9900, L501.6710, L3100.5440, L5500.0550, L500.4050, L3410.2400, L2100.0000 #### [facility] [address] [place], [address] Glucose [Mass/Vol] 101 mg/dL High 70-99 [facility] Comment on above: Performed By: #### L 3400.8000, L3200.1100, L100.0100, L3300.1200, L101.9900, L501.6710, L3100.5440, L5500.0550, L500.4050, L3410.2400, L2100.0000 #### [facility] [address] [place], [address] Potassium [Moles/Vol] 4.0 mmol/L Normal 3.3-5.1 [facility] Comment on above: Performed By: #### L 3400.8000, L3200.1100, L100.0100, L3300.1200, L101.9900, L501.6710, L3100.5440, L5500.0550, L500.4050, L3410.2400, L2100.0000 #### [facility] [address] [place], [address] Sodium [Moles/Vol] 142 mmol/L Normal 133-145 [facility] Comment on above: Performed By: #### L 3400.8000, L3200.1100, L100.0100, L3300.1200, L101.9900, L501.6710, L3100.5440, L5500.0550, L500.4050, L3410.2400, L2100.0000 #### [facility] [address] [place], [place], [id number] (092) T PROT 6.7 g/dL Normal 5.9-8.4 [facility] Comment on above: Performed By: #### L 3400.8000, L3200.1100, L100.0100, L3300.1200, L101.9900, L501.6710, L3100.5440, L5500.0550, L500.4050, L3410.2400, L2100.0000 #### [facility] [address] [place], [place], [id number] Urea nitrogen [Mass/Vol] 22 mg/dL High 4-19 [facility] Comment on above: Performed By: #### L 3400.8000, L3200.1100, L100.0100, L3300.1200, L101.9900, L501.6710, L3100.5440, L5500.0550, L500.4050, L3410.2400, L2100.0000 #### [facility] [address] [place], [address] Eosinophil percentageOrdered By: Channing Bains on 06-06-2025 Eosinophils/100 WBC (Bld) 0.6 % 0-5 [facility] Erythrocyte Sed Rateon 06-06 SED RATE 7 mm/hr Normal 0-20 [facility] Comment on above: Performed By: #### L 3400.8000, L3200.1100, L100.0100, L3300.1200, L101.9900, L501.6710, L3100.5440, L5500.0550, L500.4050, L3410.2400, L2100.0000 #### [facility] [address] [place], [address] Erythrocyte distribution wid th ratioOrdered By: Channing Bains on 06-06-2025 Erythrocyte distribution width (RBC) [Ratio] 13.3 % 11.6-14.6 [facility] Erythrocyte distribution wid th standard deviationOrdered By: Channing Bains on 06-06-2025 Erythrocyte distribution width (RBC) [Ratio] 45.5 fl High 35.1-43.9 [facility] Erythrocyte sedimentation ra teOrdered By: Channing Bains on 06-06-2025 ESR (Bld) [Velocity] 7 mm/h 0-20 [facility] Gastroenterology Visit Repor ton 06-06-2025 Gastroenterology Visit Report [facility] [address] [place] [address] OFFICE VISIT Date of Service: 06/06/25 MR#: [id number] Acct: [id number] Name: GERARDO KARIMI Rep #: [id number] : 1990 Provider: Channing Bains DO Age/Sex: 35/M Location: [facility] [place] Status: Signed Intake Intake Visit Reasons: Dx'D Ulcerative Colitis Allergies No Known Allergies Allergy (Verified 06/06/25 14:27) Medications ???Medication ???Instructions ???Recorded ???Confirmed ???Type budesonide 3 mg 9 mg PO QDAY 06/06/25 06/06/25 His tory capsule,delayed,exten ded release diphenoxylate-atropin e 2.5 1 tab PO TID #90 tabs 06/06/25 Rx mg-0.025 mg tablet (Lomotil) mesalamine 1.2 gram tablet,delayed 3.6 g PO QDAY 06/06/25 06/06/25 History release (Lialda) prednisone 10 mg tablet 50 mg (5 x 10 mg) PO QDAY 30 days 06/06/25 06/06/25 Rx #150 tabs PFSH Medical History (Updated 06/06/25 @ 14:07 by Sherley Trejo) Ulcerative colitis Family History (Updated 06/06/25 @ 14:26 by Sherley Trejo) Other Bleeding disorder CVA (cerebral vascular accident) Heart disease Hypertension Social History (Updated 06/06/25 @ 14:26 by Sherley Trejo) Smoking Status: Never smoker alcohol intake: never substance use type: does not use what type of physical activity do you participate in: walking frequency: 1-2 times per week HPI HPI Details: GERARDO KARIMI, is a 35 M who presents to the office today for initial consult. He was diagnosed with refractory ulcerative colitis (UC) on maximal doses of mesalamine and budesonide???requires a step-up in therapy to achieve remission. Budesonide MMX is effective for inducing remission in demj-fg-jswnxapc UC that has not responded to mesalamine, but it is not recommended for maintenance therapy. Newer guidelines from the [place] [employer] (AGA) recommend advancing to biologic agents or Janus kinase (KEVIN) inhibitors for msvheytd-kh-cyoobv UC that is unresponsive to 5-aminosalicylates (5-ASA) like mesalamine.???He reports increased stool frequency and urgency, bloody diarrhea, abdominal cramping, and fatigue. He also reports strict adherence to prescribed mesalamine and budesonide. * Medications: * Mesalamine [4.8 g PO daily]. * Budesonide MMX [ 9 mg PO daily]. * Allergies:???No known drug allergies (NKDA).??? * Laboratory Data (Pending): * Complete Blood Count (CBC) to check for anemia, leukocytosis. * Complete Metabolic Panel (CMP) to check for electrolyte imbalances. * C-reactive protein (CRP) and erythrocyte sedimentation rate (ESR) to monitor inflammatory markers. * Fecal calprotectin to assess mucosal inflammation. * Clostridioides difficile???stool toxin test to rule out infection. * Imaging/Endoscopy (Relevant findings): * Colonoscopy with biopsies revealing active inflammation despite treatment, confirming refractory disease. Endoscopic Huang score of [ 3] *BGI established 9.19.25 pt presents for second opinion. ESR / CRP Calp / Lact Serum / AB TB 5.17.25 --/ -- -- / -- -- / -- neg 8.27.25 3 / <3.00 -- / -- -- / -- -- ROS Const Constitutional: No fatigue, fever(s) or weight change ENT ENT: No difficulty swallowing Gastro GI: Positive for diarrhea and Blood in stool; No abdominal pain, belching, bloating, change in bowel habits, change in stool character, coffee ground emesis, constipation, cramping, heartburn, difficulty swallowing, feeling full early, exces sive flatus, incontinent of stools, Vomiting blood/hematemesis, loose stools, Black,tarry stools, nausea/dyspepsia, pain with swallowing, vomiting or other Musc Musculoskeletal: Positive for back pain and muscle cramps; No joint pain Skin Skin: No yellowing of the eye or itchy eyes Psych Psychiatric: No anxiety and No depression Endo Endocrine: No fatigue or weight change Aller/Imm Allergy/Immunologic: No itchy eyes Todd/Lymp Hematologic/Lymphatic : No easy bleeding or easy bruising Exam Const General: cooperative, healthy appearing, comfortable, no acute distress, well developed and well groomed Nutritional Appearance: well nourished Orientation: oriented x3 Eyes Sclera: sclerae normal Resp Effort Inspection: normal respiratory effort Auscultation: Bilateral: Clear to Auscultation Cardio Palpation: normal PMI Rate: regular rate Rhythm: regular rhythm Heart Sounds: S1 normal and S2 normal GI Inspection: normal to inspection Auscultation: normal bowel sounds Percussion: normal to percussion Palpation: no hepatosplenomegaly Rectal Exam: deferred Assessment and Plan Assessment and Plan (1) Ulcerative colitis: Status: Acute Plan: 35-year-old patient with refractory ulcerative colitis.???The patient has failed maximal-dose 5-ASA (mesalamine) (more content not included)... Normal [facility] Glomerular filtration rate ( GFR) estimation/1.73 sq m using serum, plasma, or whole bOrdered By: Channing Bains on 06-06-2025 GFR/1.73 sq M.predicted among non-blacks MDRD (S/P/Bld) [Vol rate/Area] 86 mL/min/{1.73_m2} >60 [facility] Comment on above: mL/min/1.73m2 CKD-EP I Creatinine Equation (2020) Hematocrit Auto (Bld) [Volum e fraction]Ordered By: Channing Bains on 06-06-2025 Hematocrit (Bld) [Volume fraction] 45.3 % 40-54 [facility] Hemoglobin measurementOrdere d By: Channing Bains on 06-06-2025 Hemoglobin (Bld) [Mass/Vol] 15.6 g/dL 13.0-16. 5 [facility] IgEOrdered By: Channing duncan on 06-06-2025 IgE 26 IU/mL 6-495 [facility] Immature granulocytes/100 WB C Auto (Bld)Ordered By: Channing Bains on 06-06-2025 Immature granulocytes/100 WBC (Bld) 0.400 % 0.0-0.9 [facility] Comment on above: IG% - Immature Granu locytes (promyelocytes, myelocytes and metamyelocytes) > 1% indicates that a LEFT SHIFT is Present. Laboratory - Chemistry and C hemistry - challengeOrdered By: Channing Bains on 06-06-2025 AST [Catalytic activity/Vol] 20 U/L <38 [facility] Laboratory - Miscellaneous t estsOrdered By: Channing Bains on 06-06-2025 Laboratory comment Rayo (Report) Comment . [facility] Comment on above: Pattern is not sugge stive of Inflammatory Bowel Disease Service comment (Unsp spec) [Interp] Comment . [facility] Comment on above: Levels of Specific I gE Class Description of Class ----- < 0.10 0 Negative 0.10 - 0.31 0/I Equivocal/Low 0.32 - 0.55 I Low 0.56 - 1.40 II Moderate 1.41 - 3.90 III High 3.91 - 19.00 IV Very High 19.01 - 100.00 V Very High >100.00 Very High Laminaribioside carbohydrate IgG antibody assayOrdered By: Channing Bains on 06-06-2025 Laminaribioside IgG IA Qn 18 units 0-60 [facility] Comment on above: Negative:<55 Equivoc al: 55-60 Positive: >60 MCV (mean corpuscular volume ) determinationOrdered By: Channing Bains on 06-06-2025 MCV (RBC) [Entitic vol] 92.8 fL 80-94 [facility] Mean corpuscular hemoglobin (MCH) determinationOrdered By: Channing Bains on 06-06-2025 MCH (RBC) [Entitic mass] 32.0 pg 27.0-32.0 [facility] Mean corpuscular hemoglobin concentration (MCHC) determinationOrdered By: Channing Bains on 06-06-2025 MCHC (RBC) [Mass/Vol] 34.4 g/dL 32-36 [facility] Mean platelet volume determi nationOrdered By: Channing Bains on 06-06-2025 Platelet mean volume (Bld) [Entitic vol] 9.1 fL 6.2-12.0 [facility] Monocyte percentageOrdered B y: Channing Bains on 06-06-2025 Monocytes/100 WBC (Bld) 12.9 % High 0-10 [facility] Neutrophil percentageOrdered By: Channing Bains on 06-06-2025 Neutrophils/100 WBC (Bld) 72.7 % High 47-70 [facility] Nucleated red blood cell per centageOrdered By: Channing Bains on 06-06-2025 Nucleated RBC/100 WBC (Bld) [Ratio] 0 % 0-5 [facility] Platelet countOrdered By: Ra shruthi Bains on 06-06-2025 Platelets (Bld) [#/Vol] 257 10*3/uL 150-450 [facility] Potassium measurement (mass/ volume)Ordered By: Channing Bains on 06-06-2025 Potassium (Unsp spec) [Mass/Vol] 4.0 mmol/L 3.3-5.1 [facility] Qualitative QuantiFERON-TB g old in tube testOrdered By: Channing Bains on 06-06-2025 M. tuberculosis tuberculin stim IFN-g Ql (Bld) 0.03 IU/mL . [facility] RBC Auto (Bld) [#/Vol]Ordere d By: Channing Bains on 06-06-2025 RBC (Bld) [#/Vol] 4.88 10*6/uL 4.6-6.2 [facility] Serum DNA double strand anti body assay (units/volume)Ordered By: Channing Bains on 06-06-2025 DNA double strand Ab Qn (S) [IU]/mL 0-9 [facility] Comment on above: Negative <5 Equivoca l 5 - 9 Positive >9 Serum Scl-70 antibody assay (units/volume)Ordered By: Channing Bains on 06-06-2025 SCL-70 extractable nuclear Ab Qn (S) <0.2 AI 0.0-0.9 [facility] Comment on above: Previous reported re sult: TNP AIEdited by: RUDI on 06/11/25:1708 AMENDED REPORT 06/11/25 1708 ANTISCLER previously reported as: Test not performed Serum beef IgE antibody assa y (units/volume)Ordered By: Channing Bains on 06-06-2025 Beef IgE Qn (S) <0.10 kU/L Class 0 [facility] Serum classic neutrophil cyt oplasmic antibody assay (units/volume)Ordered By: Channing Bains on 06-06-2025 Neutrophil cytoplasmic Ab.classic Qn (S) <1:20 titer Neg:<1:20 [facility] Serum codfish IgE antibody a ssay (units/volume)Ordered By: Channing Bains on 06-06-2025 Codfish IgE Qn (S) <0.10 kU/L Class 0 [facility] Serum corn IgE antibody assa y (units/volume)Ordered By: Channing Bains on 06-06-2025 [place] IgE Qn (S) <0.10 kU/L Class 0 [facility] Serum cow milk IgE antibody assay (units/volume)Ordered By: Channing Bains on 06-06-2025 Cow milk IgE Qn (S) 0.14 kU/L High Class 0/I [facility] Serum creatinine measurement (mass/volume)Ordered By: Channing Bains on 06-06-2025 Creatinine [Mass/Vol] 1.15 mg/dL 0.70-1.20 [facility] Serum globulin measurementOr dered By: Channing Bains on 06-06-2025 Globulin (S) [Mass/Vol] 2.7 g/dL 2.2-4.2 [facility] Serum glucose measurement (m ass/volume)Ordered By: Channing Bains on 06-06-2025 Glucose [Mass/Vol] 101 mg/dL High 70-99 [facility] Serum or plasma C reactive p rotein measurement (mass/volume)Ordered By: Channing Bains on 06-06-2025 CRP [Mass/Vol] mg/L 0.0-3.0 [facility] Serum or plasma IgA measurem ent (mass/volume)Ordered By: Channing Bains on 06-06-2025 IgA [Mass/Vol] 181 mg/dL 90-386 [facility] Serum or plasma IgG measurem ent (mass/volume)Ordered By: Channing Bains on 06-06-2025 IgG [Mass/Vol] 965 mg/dL 603-1613 [facility] Serum or plasma alanine martinez otransferase (ALT) measurementOrdered By: Channing Bains on 06-06-2025 ALT [Catalytic activity/Vol] 20 U/L <47 [facility] Serum or plasma albumin palmira urement (mass/volume)Ordered By: Channing Bains on 06-06-2025 Albumin [Mass/Vol] 4.0 g/dL 3.5-5.0 [facility] Serum or plasma albumin/glob ulin mass ratioOrdered By: Channing Bains on 06-06-2025 Albumin/Globulin [Mass ratio] 1.5 {ratio} 0.9-2.4 [facility] Serum or plasma alkaline ruthann sphatase measurementOrdered By: Channing Bains on 06-06-2025 ALP [Catalytic activity/Vol] 61 U/L 40-129 [facility] Serum or plasma calcium palmira urement (mass/volume)Ordered By: Channing Bains on 06-06-2025 Calcium [Mass/Vol] 8.7 mg/dL 7.6-11.0 [facility] Serum or plasma mannobioside IgG antibody assay by immunoassay (units/volume)Ordered By: Channing Bains on 06-06-2025 Mannobioside IgG IA Qn 71 units 0-100 [facility] Comment on above: Negative: <90 Equivo cady: 90-100 Positive: >100 This test was developed and its performance characteristics determined by [employer]. It has not been cleared or approved by the Food and Drug Administration. The FDA has determined that such clearance or approval is not necessary. Serum or plasma urea nitroge n measurement (mass/volume)Ordered By: Channing Bains on 06-06-2025 Urea nitrogen [Mass/Vol] 22 mg/dL High 4-19 [facility] Serum peanut IgE antibody as say (units/volume)Ordered By: Channing Bains on 06-06-2025 Peanut IgE Qn (S) <0.10 kU/L Class 0 [facility] Serum perinuclear neutrophil cytoplasmic antibody titer by immunofluorescenceOrdered By: Channing Bains on 06-06-2025 Neutrophil cytoplasmic Ab.perinuclear IF (S) [Titer] <1:20 titer Neg:<1:20 [facility] Comment on above: The presence of posi tive fluorescence exhibiting P-ANCA orC-ANCA patterns alone is not specific for the diagnosis ofWegener's Granulomatosis (WG) or microscopic polyangiitis.Decisions about treatment should not be based solely onANCA IFA results. The [employer] Consensusrecommends follow up testing of positive sera with both OK-3 and MPO-ANCA enzyme immunoassays. As many as 5% serumsamples are positive only by EIA. Ref. AM J Clin [id number];111:507-513. Serum pork IgE antibody assa y (units/volume)Ordered By: Channing Bains on 06-06-2025 Pork IgE Qn (S) <0.10 kU/L Class 0 [facility] Serum salmon IgE antibody as say (units/volume)Ordered By: Channing Bains on 06-06-2025 Screven IgE Qn (S) <0.10 kU/L Class 0 [facility] Serum soybean IgE antibody a ssay (units/volume)Ordered By: Channing Bains on 06-06-2025 Soybean IgE Qn (S) <0.10 kU/L Class 0 [facility] Serum tissue transglutaminas e (tTG) IgA antibody assay (units/volume)Ordered By: Channing Bains on 06-06-2025 tTG IgA Qn (S) <2 U/mL 0-3 [facility] Comment on above: Negative 0 - 3 Weak Positive 4 - 10 Positive >10 Tissue Transglutaminase (tTG) has been identified as the endomysial antigen. Studies have demonstr- ated that endomysial IgA antibodies have over 99% specificity for gluten sensitive enteropathy. Serum tuna IgE antibody assa y (units/volume)Ordered By: Channing Bains on 06-06-2025 Tuna IgE Qn (S) <0.10 kU/L Class 0 [facility] Serum wheat IgE antibody ass ay (units/volume)Ordered By: Channing Bains on 06-06-2025 Wheat IgE Qn (S) 0.14 kU/L High Class 0/I [facility] Serum whole egg IgE antibody assay (units/volume)Ordered By: Channing Bains on 06-06-2025 Whole Egg IgE Qn (S) <0.10 kU/L Class 0 [facility] Comment on above: Performed at: [address] [id number] Director: Dani Tyson PhD, Phone: [phone] at: [facility] [id number] Director: Fortunato Floyd MD, Phone: [phone] Sodium levelOrdered By: Oscar Wray on 06-06-2025 Sodium [Moles/Vol] 142 mmol/L 133-145 [facility] Total proteinOrdered By: Daniel Bains on 06-06-2025 Protein [Mass/Vol] 6.7 g/dL 5.9-8.4 [facility] White blood cell (WBC) count Ordered By: Channing Bains on 06-06-2025 WBC (Bld) [#/Vol] 8.4 10*3/uL 4.4-11.0 [facility] HLA B27on 06-02-2025 HLA B27 Negative Normal . [facility] Comment on above: Result Comment: HLA- B*27 Negative B27 allele interpretation for all loci based on IMGT/HLA database version 3.58 This test was developed and its performance characteristics determined by [employer]. It has not been cleared or approved by the Food and Drug Administration. The FDA has determined that such clearance or approval is not necessary. [facility] CLIA ID Number [id number] HISTOCOMPATIBILITY SECTION DIRECTOR: Adriel Manriquez, PhD, F([facility]) This test was performed using Polymerase Chain Reaction (PCR) and Sequence Specific Oligonucleotide Probes (SSOP) technique. Sequence Based Typing (SBT) may be used as a supplemental method when necessary. If you have questions, please call [facility] customer service at or email at [email or web address]. Performed at: [address] [place] [id number] Language Teacher: Radha Holcomb PhD, Phone: [phone] Performed By: #### L 3400.8000, L3200.1100, L100.0100, L3300.1200, L101.9900, L501.6710, L3100.5440, L5500.0550, L500.4050, L3410.2400, L2100.0000 #### [facility] [address] [place], [address] Anion gap in Serum or Plasma Ordered By: Dani Villa on 05-14-2025 Anion gap [Moles/Vol] 12 mmol/L - [facility] BUN/creatinine ratioOrdered By: Dani Villa on 05-14-2025 Urea nitrogen/Creatinine [Mass ratio] 14.0 mg/mg - [facility] Bilirubin, totalOrdered By: Dani Villa on 05-14-2025 Bilirubin [Mass/Vol] 0.40 mg/dL 0.00-1.30 [facility] CBC-Complete Blood Cnt No Di ffon 05-14-2025 Erythrocyte distribution width (RBC) [Ratio] 12.6 % Normal 11.6-14.6 [facility] Comment on above: Performed By: #### L 3400.8000, L3200.1100, L100.0100, L3300.1200, L101.9900, L501.6710, L3100.5440, L5500.0550, L500.4050, L3410.2400, L2100.0000 #### [facility] [address] [place], [address] Hematocrit (Bld) [Volume fraction] 44.2 % Normal 40-54 [facility] Comment on above: Performed By: #### L 3400.8000, L3200.1100, L100.0100, L3300.1200, L101.9900, L501.6710, L3100.5440, L5500.0550, L500.4050, L3410.2400, L2100.0000 #### [facility] [address] [place], [address] Hemoglobin (Bld) [Mass/Vol] 15.7 g/dL Normal 13.0-16. 5 [facility] Comment on above: Performed By: #### L 3400.8000, L3200.1100, L100.0100, L3300.1200, L101.9900, L501.6710, L3100.5440, L5500.0550, L500.4050, L3410.2400, L2100.0000 #### [facility] [address] [place], [address] MCH (RBC) [Entitic mass] 32.2 pg High 27.0-32.0 [facility] Comment on above: Performed By: #### L 3400.8000, L3200.1100, L100.0100, L3300.1200, L101.9900, L501.6710, L3100.5440, L5500.0550, L500.4050, L3410.2400, L2100.0000 #### [facility] [address] [place], [address] (770) MCHC (RBC) [Mass/Vol] 35.5 g/dL Normal 32-36 [facility] Comment on above: Performed By: #### L 3400.8000, L3200.1100, L100.0100, L3300.1200, L101.9900, L501.6710, L3100.5440, L5500.0550, L500.4050, L3410.2400, L2100.0000 #### [facility] [address] [place], [address] (026) MCV (RBC) [Entitic vol] 90.8 fL Normal 80-94 [facility] Comment on above: Performed By: #### L 3400.8000, L3200.1100, L100.0100, L3300.1200, L101.9900, L501.6710, L3100.5440, L5500.0550, L500.4050, L3410.2400, L2100.0000 #### [facility] [address] [place], [address] (951) Platelet mean volume (Bld) [Entitic vol] 9.8 fL Normal 6.2-12.0 [facility] Comment on above: Performed By: #### L 3400.8000, L3200.1100, L100.0100, L3300.1200, L101.9900, L501.6710, L3100.5440, L5500.0550, L500.4050, L3410.2400, L2100.0000 #### [facility] [address] [place], [address] (274) Platelets (Bld) [#/Vol] 269 10*3/uL Normal 150-450 [facility] Comment on above: Performed By: #### L 3400.8000, L3200.1100, L100.0100, L3300.1200, L101.9900, L501.6710, L3100.5440, L5500.0550, L500.4050, L3410.2400, L2100.0000 #### [facility] [address] [place], [address] RBC (Bld) [#/Vol] 4.87 10*6/uL Normal 4.6-6.2 [facility] Comment on above: Performed By: #### L 3400.8000, L3200.1100, L100.0100, L3300.1200, L101.9900, L501.6710, L3100.5440, L5500.0550, L500.4050, L3410.2400, L2100.0000 #### [facility] [address] [place], [address] RDW SD 41.2 fl Normal 35.1-43.9 [facility] Comment on above: Performed By: #### L 3400.8000, L3200.1100, L100.0100, L3300.1200, L101.9900, L501.6710, L3100.5440, L5500.0550, L500.4050, L3410.2400, L2100.0000 #### [facility] [address] [place], [address] WBC (Bld) [#/Vol] 7.7 10*3/uL Normal 4.4-11.0 [facility] Comment on above: Performed By: #### L 3400.8000, L3200.1100, L100.0100, L3300.1200, L101.9900, L501.6710, L3100.5440, L5500.0550, L500.4050, L3410.2400, L2100.0000 #### [facility] [address] [place], [address] CRPon 05-14-2025 C-REACTIVE PROT < 3.00 Normal 0.0-3.0 [facility] Comment on above: Performed By: #### L 3400.8000, L3200.1100, L100.0100, L3300.1200, L101.9900, L501.6710, L3100.5440, L5500.0550, L500.4050, L3410.2400, L2100.0000 #### [facility] [address] [place], [address] Carbon dioxide, total [Moles /volume] in Central venous bloodOrdered By: Dani Villa on 05-14-2025 CO2 [Moles/Vol] 23.4 mmol/L 21.0-32.0 [facility] Chloride assayOrdered By: Meagan Villa on 05-14-2025 Chloride [Moles/Vol] 104 mmol/L 98-108 [facility] Comprehensive Metabolic Prof ilon 05-14-2025 Albumin [Mass/Vol] 4.2 g/dL Normal 3.5-5.0 [facility] Comment on above: Performed By: #### L 3400.8000, L3200.1100, L100.0100, L3300.1200, L101.9900, L501.6710, L3100.5440, L5500.0550, L500.4050, L3410.2400, L2100.0000 #### [facility] [address] [place], [address] Albumin/Globulin [Mass ratio] 1.5 {ratio} Normal 0.9-2.4 [facility] Comment on above: Performed By: #### L 3400.8000, L3200.1100, L100.0100, L3300.1200, L101.9900, L501.6710, L3100.5440, L5500.0550, L500.4050, L3410.2400, L2100.0000 #### [facility] [address] [place], [address] ALK PHOS 72 U/L Normal 40-129 [facility] Comment on above: Performed By: #### L 3400.8000, L3200.1100, L100.0100, L3300.1200, L101.9900, L501.6710, L3100.5440, L5500.0550, L500.4050, L3410.2400, L2100.0000 #### [facility] [address] [place], [address] ALT [Catalytic activity/Vol] 18 U/L Normal <=46 [facility] Comment on above: Performed By: #### L 3400.8000, L3200.1100, L100.0100, L3300.1200, L101.9900, L501.6710, L3100.5440, L5500.0550, L500.4050, L3410.2400, L2100.0000 #### [facility] [address] [place], [address] AST [Catalytic activity/Vol] 18 U/L Normal <=37 [facility] Comment on above: Performed By: #### L 3400.8000, L3200.1100, L100.0100, L3300.1200, L101.9900, L501.6710, L3100.5440, L5500.0550, L500.4050, L3410.2400, L2100.0000 #### [facility] [address] [facility] [place], [place], [id number] Bilirubin [Mass/Vol] 0.40 mg/dL Normal 0.00-1.30 [facility] Comment on above: Performed By: #### L 3400.8000, L3200.1100, L100.0100, L3300.1200, L101.9900, L501.6710, L3100.5440, L5500.0550, L500.4050, L3410.2400, L2100.0000 #### [facility] [address] [place], [address] BUN/CRE 14.0 RATIO Normal 10-20 [facility] Comment on above: Performed By: #### L 3400.8000, L3200.1100, L100.0100, L3300.1200, L101.9900, L501.6710, L3100.5440, L5500.0550, L500.4050, L3410.2400, L2100.0000 #### [facility] [address] [place], [address] Calcium [Mass/Vol] 8.9 mg/dL Normal 7.6-11.0 [facility] Comment on above: Performed By: #### L 3400.8000, L3200.1100, L100.0100, L3300.1200, L101.9900, L501.6710, L3100.5440, L5500.0550, L500.4050, L3410.2400, L2100.0000 #### [facility] [address] [place], [address] Chloride [Moles/Vol] 104 mmol/L Normal 98-108 [facility] Comment on above: Performed By: #### L 3400.8000, L3200.1100, L100.0100, L3300.1200, L101.9900, L501.6710, L3100.5440, L5500.0550, L500.4050, L3410.2400, L2100.0000 #### [facility] [address] [place], [address] CO2 [Moles/Vol] 23.4 mmol/L Normal 21.0-32.0 [facility] Comment on above: Performed By: #### L 3400.8000, L3200.1100, L100.0100, L3300.1200, L101.9900, L501.6710, L3100.5440, L5500.0550, L500.4050, L3410.2400, L2100.0000 #### [facility] [address] [place], [address] Creatinine [Mass/Vol] 1.21 mg/dL High 0.70-1.20 [facility] Comment on above: Performed By: #### L 3400.8000, L3200.1100, L100.0100, L3300.1200, L101.9900, L501.6710, L3100.5440, L5500.0550, L500.4050, L3410.2400, L2100.0000 #### [facility] [address] [place], [address] GAP 12 Normal 5-15 [facility] Comment on above: Performed By: #### L 3400.8000, L3200.1100, L100.0100, L3300.1200, L101.9900, L501.6710, L3100.5440, L5500.0550, L500.4050, L3410.2400, L2100.0000 #### [facility] [address] [place], [address] GFR/1.73 sq M.predicted among non-blacks MDRD (S/P/Bld) [Vol rate/Area] 81 mL/min/{1.73_m2} Normal >60 [facility] Comment on above: Result Comment: mL/m in/1.73m2 CKD-EPI Creatinine Equation (2020) Performed By: #### L 3400.8000, L3200.1100, L100.0100, L3300.1200, L101.9900, L501.6710, L3100.5440, L5500.0550, L500.4050, L3410.2400, L2100.0000 #### [facility] [address] [place], [address] Globulin (S) [Mass/Vol] 2.9 g/dL Normal 2.2-4.2 [facility] Comment on above: Performed By: #### L 3400.8000, L3200.1100, L100.0100, L3300.1200, L101.9900, L501.6710, L3100.5440, L5500.0550, L500.4050, L3410.2400, L2100.0000 #### [facility] [address] [place], [address] Glucose [Mass/Vol] 85 mg/dL Normal 70-99 [facility] Comment on above: Performed By: #### L 3400.8000, L3200.1100, L100.0100, L3300.1200, L101.9900, L501.6710, L3100.5440, L5500.0550, L500.4050, L3410.2400, L2100.0000 #### [facility] [address] [place], [address] Potassium [Moles/Vol] 4.3 mmol/L Normal 3.3-5.1 [facility] Comment on above: Performed By: #### L 3400.8000, L3200.1100, L100.0100, L3300.1200, L101.9900, L501.6710, L3100.5440, L5500.0550, L500.4050, L3410.2400, L2100.0000 #### [facility] [address] [place], [address] Sodium [Moles/Vol] 140 mmol/L Normal 133-145 [facility] Comment on above: Performed By: #### L 3400.8000, L3200.1100, L100.0100, L3300.1200, L101.9900, L501.6710, L3100.5440, L5500.0550, L500.4050, L3410.2400, L2100.0000 #### [facility] [address] [place], [address] T PROT 7.1 g/dL Normal 5.9-8.4 [facility] Comment on above: Performed By: #### L 3400.8000, L3200.1100, L100.0100, L3300.1200, L101.9900, L501.6710, L3100.5440, L5500.0550, L500.4050, L3410.2400, L2100.0000 #### [facility] [address] [place], [address] Urea nitrogen [Mass/Vol] 17 mg/dL Normal 4-19 [facility] Comment on above: Performed By: #### L 3400.8000, L3200.1100, L100.0100, L3300.1200, L101.9900, L501.6710, L3100.5440, L5500.0550, L500.4050, L3410.2400, L2100.0000 #### [facility] [address] [place], [address] Erythrocyte Sed Rateon 05-14 SED RATE 3 mm/hr Normal 0-20 [facility] Comment on above: Performed By: #### L 3400.8000, L3200.1100, L100.0100, L3300.1200, L101.9900, L501.6710, L3100.5440, L5500.0550, L500.4050, L3410.2400, L2100.0000 #### [facility] [address] [place], [address] Erythrocyte distribution wid th ratioOrdered By: Dani Villa on 05-14-2025 Erythrocyte distribution width (RBC) [Ratio] 12.6 % 11.6-14.6 [facility] Erythrocyte distribution wid th standard deviationOrdered By: Dani Villa on 05-14-2025 Erythrocyte distribution width (RBC) [Ratio] 41.2 fl 35.1-43.9 [facility] Erythrocyte sedimentation ra teOrdered By: Dani Villa on 05-14-2025 ESR (Bld) [Velocity] 3 mm/h 0-20 [facility] Glomerular filtration rate ( GFR) estimation/1.73 sq m using serum, plasma, or whole bOrdered By: Dani Villa on 05-14-2025 GFR/1.73 sq M.predicted among non-blacks MDRD (S/P/Bld) [Vol rate/Area] 81 mL/min/{1.73_m2} >60 [facility] Comment on above: mL/min/1.73m2 CKD-EP I Creatinine Equation (2020) Hematocrit Auto (Bld) [Volum e fraction]Ordered By: Dani Villa on 05-14-2025 Hematocrit (Bld) [Volume fraction] 44.2 % 40-54 [facility] Hemoglobin measurementOrdere d By: Dani Villa on 05-14-2025 Hemoglobin (Bld) [Mass/Vol] 15.7 g/dL 13.0-16. 5 [facility] - Chemistry and C hemistry - challengeOrdered By: Dani Villa on 05-14-2025 AST [Catalytic activity/Vol] 18 U/L <38 [facility] MCV (mean corpuscular volume ) determinationOrdered By: Dani Villa on 05-14-2025 MCV (RBC) [Entitic vol] 90.8 fL 80-94 [facility] Mean corpuscular hemoglobin (MCH) determinationOrdered By: Dani Villa on 05-14-2025 MCH (RBC) [Entitic mass] 32.2 pg High 27.0-32.0 [facility] Mean corpuscular hemoglobin concentration (MCHC) determinationOrdered By: Dani Villa on 05-14-2025 MCHC (RBC) [Mass/Vol] 35.5 g/dL 32-36 [facility] Mean platelet volume determi nationOrdered By: Dani Villa on 05-14-2025 Platelet mean volume (Bld) [Entitic vol] 9.8 fL 6.2-12.0 [facility] Platelet countOrdered By: Meagan Villa on 05-14-2025 Platelets (Bld) [#/Vol] 269 10*3/uL 150-450 [facility] Potassium measurement (mass/ volume)Ordered By: Dani Villa on 05-14-2025 Potassium (Unsp spec) [Mass/Vol] 4.3 mmol/L 3.3-5.1 [facility] RBC Auto (Bld) [#/Vol]Ordere d By: Dani Villa on 05-14-2025 RBC (Bld) [#/Vol] 4.87 10*6/uL 4.6-6.2 [facility] Serum creatinine measurement (mass/volume)Ordered By: Dani Villa on 05-14-2025 Creatinine [Mass/Vol] 1.21 mg/dL High 0.70-1.20 [facility] Serum globulin measurementOr dered By: Dani Villa on 05-14-2025 Globulin (S) [Mass/Vol] 2.9 g/dL 2.2-4.2 [facility] Serum glucose measurement (m ass/volume)Ordered By: Dani Villa on 05-14-2025 Glucose [Mass/Vol] 85 mg/dL 70-99 [facility] Serum or plasma C reactive p rotein measurement (mass/volume)Ordered By: Dani Villa on 05-14-2025 CRP [Mass/Vol] mg/L 0.0-3.0 [facility] Serum or plasma alanine martinez otransferase (ALT) measurementOrdered By: Dani Villa on 05-14-2025 ALT [Catalytic activity/Vol] 18 U/L <47 [facility] Serum or plasma albumin palmira urement (mass/volume)Ordered By: Dani Villa on 05-14-2025 Albumin [Mass/Vol] 4.2 g/dL 3.5-5.0 [facility] Serum or plasma albumin/glob ulin mass ratioOrdered By: Dani Villa on 05-14-2025 Albumin/Globulin [Mass ratio] 1.5 {ratio} 0.9-2.4 [facility] Serum or plasma alkaline ruthann sphatase measurementOrdered By: Dani Villa on 05-14-2025 ALP [Catalytic activity/Vol] 72 U/L 40-129 [facility] Serum or plasma calcium palmira urement (mass/volume)Ordered By: Dani Villa on 05-14-2025 Calcium [Mass/Vol] 8.9 mg/dL 7.6-11.0 [facility] Serum or plasma urea nitroge n measurement (mass/volume)Ordered By: Dani Villa on 05-14-2025 Urea nitrogen [Mass/Vol] 17 mg/dL 4-19 [facility] Sodium levelOrdered By: Mami Villa on 05-14-2025 Sodium [Moles/Vol] 140 mmol/L 133-145 [facility] Total proteinOrdered By: Tereso Villa on 05-14-2025 Protein [Mass/Vol] 7.1 g/dL 5.9-8.4 [facility] White blood cell (WBC) count Ordered By: Dani Villa on 08-27-2025 WBC (Bld) [#/Vol] 7.7 10*3/[facility] GERARDO KARIMI ([id number]) 1990 M Date Time Provider Department 04/17/25 5:45 PM JUSTIN SANTANA During your visit today, we recorded the following information about you: Temperature Pulse Respiration Blood pressure 98.1 degrees 80/minute 18/minute 140/83 Weight 150.3 kg Justin Santana APRN.PHARMACY CLINICAL SPECIALIST 04/17/2025 6:16 PM Signed [facility] Subjective Gerardo Karimi is a 35 year old male. Patient presents with: Rash: Bilateral legs, arms x1 week HPI Nontoxic-appearing 35-year-old male presents urgent care chief complaint rash. Duration of symptoms 1 week. Associated symptoms pruritic rash on lower legs that has now spread to the arms and back of hand. OTC medications none recently. Denies any pain. Most bothersome symptom today is pruritus. Denies any fever body aches or chills. No recent medication changes. No antibiotic use. Overall feels well. Past medical history prescription medications allergies reviewed Review of Systems Constitutional: Negative for chills, diaphoresis, fatigue and fever. HENT: Negative for congestion, ear discharge, ear pain, rhinorrhea, sinus pressure, sinus pain, sneezing and sore throat. Eyes: Negative for pain, discharge, redness, itching and visual disturbance. Respiratory: Negative for cough, chest tightness, shortness of breath and wheezing. Cardiovascular: Negative for chest pain. Gastrointestinal: Negative for abdominal pain, constipation, diarrhea, nausea and vomiting. Musculoskeletal: Negative for joint swelling, neck pain and neck stiffness. Skin: Positive for rash. Neurological: Negative for dizziness, weakness and headaches. Objective BP 140/83 Pulse 80 Temp 36.7 ?C (98.1 ?F) Resp 18 Wt (!) 150.3 kg (331 lb 5.6 oz) SpO2 98% Physical Exam Constitutional: Appearance: Normal appearance. HENT: Head: Normocephalic. Nose: Nose normal. No congestion or rhinorrhea. Mouth/Throat: Mouth: Mucous membranes are moist. Pharynx: Oropharynx is clear. No oropharyngeal exudate or posterior oropharyngeal erythema. Eyes: Conjunctiva/sclera: Conjunctivae normal. Cardiovascular: Rate and Rhythm: Normal rate. Pulmonary: Effort: Pulmonary effort is normal. Breath sounds: Normal breath sounds. No wheezing, rhonchi or rales. Musculoskeletal: General: Normal range of motion. Cervical back: Normal range of motion and neck supple. No rigidity. Lymphadenopathy: Cervical: No cervical adenopathy. Skin: General: Skin is warm. Findings: No rash. Comments: Macular papular rash with some fluid-filled vesicles noted highlighted area. Spares palms of hands. No mucous membrane involvement or desquamation of skin. Neurological: Mental Status: He is alert. {ASSESSMENT/PLAN: 1. Rash - ICD9: 782.1, ICD10: R21 Diagnosis rash. Treat as contact dermatitis. Placed on prednisone taper and steroid cream. Encouraged to use steroid cream first if poison nimisha spreads can use prednisone taper. Patient was educated on supportive therapies. Patient will follow up with primary care provider 3 to 5 days patient was instructed to immediately proceed to emergency room for any new, worsening, or symptoms lasting longer than anticipated. The patient's clinical presentation is otherwise unremarkable at this time. Based on exam and clinical finding, the patient is stable for discharge. Plan of care was discussed with patient. Patient verbalizes understanding and agrees to plan of care. This note was generated using [employer] software. It may contain errors in wording, punctuation, or spelling. Justin Santana APRN.PHARMACY CLINICAL SPECIALIST History and Record Review Clinical information obtained from an independent historian. History obtained from or confirmed by: parent. External record(s) reviewed: prior outpatient record. Disposition The patient was discharged. Procedures Allergies As of Date: 04/17/2025 (No Known Allergies) Date Reviewed: 04/17/2025 Reviewed by: Justin Santana APRN.PHARMACY CLINICAL SPECIALIST - Fully Assessed Reason for Visit: Rash [1087] Cmt: Bilateral legs, arms x1 week Primary Visit Diagnosis:Rash [R21] Order(s):triamcinolon e acetonide (KENALOG) 0.1 % creamApply 1 application to affected area three times a day for 7 days. Apply sparingly to area for rash/itching.Disp: 80 gRfl: 0 predniSONE (DELTASONE) 10 mg tabletTake 4 tabs daily for 3 days, then 2 tabs daily for 3 days, then 1 tab daily for 3 days with food.Disp: 21 tabletRfl: 0 Prescriptions as of 04/17/2025 - triamcinolone acetonide (KENALOG) 0.1 % cream Apply 1 application to affected area three times a day for 7 days. Apply sparingly to area for rash/itching. - predniSONE (DELTASONE) 10 mg tablet Take 4 tabs daily for 3 days, then 2 tabs daily for 3 days, then 1 tab daily for 3 days with food. Problem List As Of Date: 04/17/2025 (None) Prescripti (more content not included)... Normal [facility] Clostridioides difficile nuc leic acid assay by PCROrdered By: Dani Villa on 01-18-2024 C. difficile DNA SIDDHARTH+probe Ql (Unsp spec) [facility] Giardia lamblia ag stool EIA Ordered By: Dani Villa on 01-18-2024 G. lamblia Ag IA Ql (Stl) Negative Negative [facility] Comment on above: Performed at: [address] [id number] Director: Dani Tyson PhD, Phone: [phone] Lower GI hemoglobin IA Ql (S tl)Ordered By: Zhang Frias on 10-18-2023 Stool Occult Blood (LATOSHA) Positive [facility] Lower GI hemoglobin IA Ql (S tl)Ordered By: Brad Frias on 10-18-2023 Stool Occult Blood (LATOSHA) Positive [facility] Stool enteric pathogen panel by probe and target amplification methodOrdered By: Zhang Frias on 10-18-2023 Gastrointestinal pathogens panel SIDDHARTH+probe (Stl) [facility] Stool enteric pathogen panel by probe and target amplification methodOrdered By: Brad Frias on 10-18-2023 Gastrointestinal pathogens panel SIDDHARTH+probe (Stl) [facility] Stool pancreatic elastase me asurement (mass/mass)Ordered By: Brad Frias on 10-18-2023 Elastase.pancreatic (Stl) [Mass/Mass] < 50 >200 [facility] Comment on above: Result Units: ug Annemarie st./gResults verified by repeat testing Severe Pancreatic Insufficiency: <100 Moderate Pancreatic Insufficiency: 100 - 200 Normal: >200Performed at: [facility] [id number] Director: Fortunato Floyd MD, Phone: [phone] Absolute lymphocyte countOrd ered By: Zhang Frias on 10-12-2023 Lymphocytes Auto (Unsp spec) [#/Vol] 1.74 10*3/uL 0.83-4.51 [facility] Automated lymphocyte count a s percentage of total leukocytesOrdered By: Zhang Frias on 10-12-2023 Lymphocytes/100 WBC Auto (Unsp spec) 25.2 % 19-41 [facility] Basophil percentageOrdered B y: Zhang Frias on 10-12-2023 Basophils/100 WBC (Bld) 1.2 % 0-1 [facility] Bilirubin [Mass/Vol] 0.50 mg/dL 0.20-1.00 [facility] Comment on above: For patients on eltr ombopag therapy, use of Dimension [place] TBIL is not recommended. Chloride [Moles/Vol] 109 mmol/L 98-107 [facility] Eosinophils/100 WBC (Bld) 15.2 % 0-5 [facility] Glucose [Mass/Vol] 113 mg/dL 74-106 [facility] Comment on above: Fasting Glucose resu lt from 100 to 125 mg/dL suggests IMPAIRED HOMEOSTASIS per A.D.A. criteria. Hemoglobin (Bld) [Mass/Vol] 16.2 g/dL 13.0-16. 5 [facility] Monocytes/100 WBC (Bld) 10.3 % 0-10 [facility] Neutrophils (Bld) [#/Vol] 3.3 10*3/uL 2.0-7.7 [facility] Neutrophils/100 WBC (Bld) 47.8 % 47-70 [facility] Potassium [Moles/Vol] 4.0 mmol/L 3.5-5.1 [facility] Protein [Mass/Vol] 7.3 g/dL 6.4-8.2 [facility] Sodium [Moles/Vol] 139 mmol/L 136-145 [facility] WBC (Bld) [#/Vol] 6.9 10*3/uL 4.4-11.0 [facility] Determination of erythrocyte mean corpuscular volume (MCV)Ordered By: Zhang Frias on 10-12-2023 MCV (RBC) [Entitic vol] 90.0 fL 80-94 [facility] Erythrocyte distribution wid th ratioOrdered By: Zhang Frias on 10-12-2023 Erythrocyte distribution width (RBC) [Ratio] 12.4 % 11.6-14.6 [facility] Erythrocyte distribution wid th standard deviationOrdered By: Zhang Frias on 10-12-2023 Erythrocyte distribution width (RBC) [Entitic vol] 41.1 fL 35.1-43.9 [facility] Erythrocyte sedimentation ra teOrdered By: Zhang Frias on 10-12-2023 ESR (Bld) [Velocity] 6 mm/h 0-20 [facility] Hematocrit Auto (Bld) [Volum e fraction]Ordered By: Zhang Frias on 10-12-2023 Hematocrit (Bld) [Volume fraction] 46.1 % 40-54 [facility] Immature granulocytes/100 WB C Auto (Bld)Ordered By: Zhang Frias on 10-12-2023 Immature granulocytes/100 WBC (Bld) 0.300 % 0.0-0.9 [facility] Comment on above: IG% - Immature Granu locytes (promyelocytes, myelocytes and metamyelocytes) > 1% indicates that a LEFT SHIFT is Present. Laboratory - Chemistry and C hemistry - challengeOrdered By: Zhang Frias on 10-12-2023 Albumin/Globulin [Mass ratio] 1.0 {ratio} 0.9-2.4 [facility] ALP [Catalytic activity/Vol] 72 U/L 45-117 [facility] ALT [Catalytic activity/Vol] 32 U/L 16-61 [facility] CO2 [Moles/Vol] 26.0 mmol/L 21.0-32.0 [facility] Globulin (S) [Mass/Vol] 3.7 g/dL 2.2-4.2 [facility] Urea nitrogen/Creatinine [Mass ratio] 13.0 mg/mg 10-20 [facility] Laboratory - Hematology and Cell countsOrdered By: Zhang Frias on 10-12-2023 MCH (RBC) [Entitic mass] 31.6 pg 27.0-32.0 [facility] MCHC (RBC) [Mass/Vol] 35.1 g/dL 32-36 [facility] Nucleated RBC/100 WBC (Bld) [Ratio] 0 % 0-5 [facility] Platelets (Bld) [#/Vol] 264 10*3/uL 150-450 [facility] No Panel InformationOrdered By: Zhang Frias on 10-12-2023 Anti-Gliadin IgA Antibody 7 units 0-19 [facility] Comment on above: Negative 0 - 19 Weak Positive 20 - 30 Moderate to Strong Positive >30 Anti-Gliadin IgG Antibody 2 units 0-19 [facility] Comment on above: Negative 0 - 19 Weak Positive 20 - 30 Moderate to Strong Positive >30 Endomysial IgA Antibody Negative Negative [facility] Estimated GFR (MDRD) Amer 82 mL/min >60 [facility] Comment on above: GFR Calc Estimated GFR (MDRD) Non-Af Amer 68 mL/min >60 [facility] Comment on above: Non- GFR Calc Tissue Transglutaminase IgG Ab 4 U/mL 0-5 [facility] Comment on above: Negative 0 - 5 Weak Positive 6 - 9 Positive >9 Platelet mean volume Jonel-Ec ker (Bld) [Entitic vol]Ordered By: Zhang Frias on 10-12-2023 Platelet mean volume (Bld) [Entitic vol] 9.4 fL 6.2-12.0 [facility] RBC Auto (Bld) [#/Vol]Ordere d By: Zhang Frias on 10-12-2023 RBC (Bld) [#/Vol] 5.12 10*6/uL 4.6-6.2 [facility] Serum IgA measurement (units /volume)Ordered By: Zhang Frias on 10-12-2023 IgA Qn (S) 202 mg/dL 90-386 [facility] Comment on above: Performed at: [address] [id number] Director: Dani Tyson PhD, Phone: [phone] Serum or plasma calcium palmira urement (mass/volume)Ordered By: Zhang Frias on 10-12-2023 Calcium [Mass/Vol] 8.4 mg/dL 8.5-10.1 [facility] Serum or plasma creatinine m easurement (mass/volume)Ordered By: Zhang Frias on 10-12-2023 Creatinine [Mass/Vol] 1.31 mg/dL 0.70-1.30 [facility] Comment on above: The validity of the calculated GFR & GFRAA in patients over 70 years has not been determined. Clinical correlation is essential. Serum or plasma thyroid stim ulating hormone (TSH) measurement (units/volume)Ordered By: Zhang Frias on 10-12-2023 TSH Qn 1.67 uIU/mL 0.358-3.74 [facility] Serum or plasma urea nitroge n measurement (mass/volume)Ordered By: Zhang Frias on 10-12-2023 Urea nitrogen [Mass/Vol] 17 mg/dL 7-18 [facility] Serum tissue transglutaminas e IgA antibody assay (units/volume)Ordered By: Zhang Frias on 10-12-2023 tTG IgA Qn (S) <2 U/mL 0-3 [facility] Comment on above: Negative 0 - 3 Weak Positive 4 - 10 Positive >10 Tissue Transglutaminase (tTG) has been identified as the endomysial antigen. Studies have demonstr- ated that endomysial IgA antibodies have over 99% specificity for gluten sensitive enteropathy. Thin prep Papanicolaou smear with manual screeningOrdered By: Zhang Frias on 10-12-2023 Thin prep Papanicolaou smear with manual screening 3.6 g/dL 3.2-5.0 [facility] Thin prep Papanicolaou smear with manual screening 18 U/L 15-37 [facility] Thin prep Papanicolaou smear with manual screening 4 5-15 [facility] Basophil percentageOrdered B y: Fidel Castorena on 07-28-2023 Chloride [Moles/Vol] 107 mmol/L 98-107 [facility] Glucose [Mass/Vol] 109 mg/dL 74-106 [facility] Comment on above: Fasting Glucose resu lt from 100 to 125 mg/dL suggests IMPAIRED HOMEOSTASIS per A.D.A. criteria. Potassium [Moles/Vol] 4.1 mmol/L 3.5-5.1 [facility] Sodium [Moles/Vol] 136 mmol/L 136-145 [facility] Laboratory - Chemistry and C hemistry - challengeOrdered By: Fidel Castorena on 07-28-2023 CO2 [Moles/Vol] 29.0 mmol/L 21.0-32.0 [facility] Magnesium [Mass/Vol] 2.1 mg/dL 1.6-2.6 [facility] Urea nitrogen/Creatinine [Mass ratio] 14.5 mg/mg 10-20 [facility] No Panel InformationOrdered By: Fidel Castorena on 07-28-2023 Estimated GFR (MDRD) Amer 82 mL/min >60 [facility] Comment on above: GFR Calc Estimated GFR (MDRD) Non-Af Amer 68 mL/min >60 [facility] Comment on above: Non- GFR Calc Serum or plasma calcium palmira urement (mass/volume)Ordered By: Fidel Castorena on 07-28-2023 Calcium [Mass/Vol] 9.0 mg/dL 8.5-10.1 [facility] Serum or plasma creatinine m easurement (mass/volume)Ordered By: Fidel Castorena on 07-28-2023 Creatinine [Mass/Vol] 1.31 mg/dL 0.70-1.30 [facility] Comment on above: The validity of the calculated GFR & GFRAA in patients over 70 years has not been determined. Clinical correlation is essential. Serum or plasma urea nitroge n measurement (mass/volume)Ordered By: Fidel Castorena on 07-28-2023 Urea nitrogen [Mass/Vol] 19 mg/dL 7-18 [facility] Thin prep Papanicolaou smear with manual screeningOrdered By: Fidel Castorena on 07-28-2023 Thin prep Papanicolaou smear with manual screening 0 5-15 [facility] Vital Signs Date Time Vital Sign Value Performing Clinician Franny christianson 04-17-2025 17:53-0400 Body temperature 98.1 [degF] Justin aMx VIBRATION ENGINEER.PHARMACY CLINICAL SPECIALIST Work Phone: [facility] 04-17-2025 17:53-0400 Body weight 150.3 kg Justingabo Santana VIBRATION ENGINEER.PHARMACY CLINICAL SPECIALIST Work Phone: [facility] 04-17-2025 17:53-0400 Diastolic blood pressure 83 mm[Hg] Justin Mcdonaldclarice VIBRATION ENGINEER.PHARMACY CLINICAL SPECIALIST Work Phone: [facility] 04-17-2025 17:53-0400 Heart rate 80 /min Justin Pendrichmond VIBRATION ENGINEER.PHARMACY CLINICAL SPECIALIST Work Phone: [facility] 04-17-2025 17:53-0400 Respiratory rate 18 /min [facility] VIBRATION ENGINEER.PHARMACY CLINICAL SPECIALIST Work Phone: [facility] 04-17-2025 17:53-0400 SaO2% (BldA) [Mass fraction] 98 % [facility] VIBRATION ENGINEER.PHARMACY CLINICAL SPECIALIST Work Phone: [facility] 04-17-2025 17:53-0400 Systolic blood pressure 140 mm[Hg] [facility] VIBRATION ENGINEER.PHARMACY CLINICAL SPECIALIST Work Phone: [facility] Encounters Encounter Date Encounter Type Care Provider Facility Start: 06-13-2025 Patient encounter procedure Channing Bains DO -Laboratory Specimen Work Phone: Start: 06-13-2025 ambulatory Channing Troy Facility :[facility] Start: 06-06-2025 End: 06-06-2025 Patient encounter procedure Channing Bains DO -Laboratory Work Phone: Start: 06-06-2025 End: 06-06-[address] Brad Frias MD Work Phone: [facility] Start: 06-06-2025 End: 06-06-2025 ambulatory Channing Bains Facility:[facility] Start: 05-14-2025 End: 05-14-[address] Brad Frias MD Work Phone: -[facility] [place] Start: 05-14-2025 End: 05-14-[address] Dani Villa MD -[facility] [place] Work Phone: Start: 05-14-2025 End: 05-14-2025 ambulatory Dani Villa Facility:[facility] Start: 04-17-2025 End: 04-17-2025 Office outpatient new 30 minutes Justin Santana VIBRATION ENGINEER.PHARMACY CLINICAL SPECIALIST Work Phone: [facility] Comment on above: Rash (Primary Dx) Start: 04-17-2025 End: 04-17-2025 ambulatory JUSTIN SANTANA Facility:[facility] Start: 01-18-2024 End: 01-18-2024 ambulatory [facility] Work Phone: Start: 01-18-2024 End: 01-18-2024 Patient encounter procedure [facility] Work Phone: Start: 10-18-2023 End: 10-18-2023 ambulatory [facility] Work Phone: Start: 10-18-2023 End: 10-18-2023 Patient encounter procedure [facility] Start: 10-12-2023 End: 10-12-2023 ambulatory [facility] Work Phone: Start: 10-12-2023 End: 10-12-2023 Patient encounter procedure [facility] Start: 07-28-2023 End: 07-28-2023 ambulatory [facility] Work Phone: Start: 07-28-2023 End: 07-28-2023 Patient encounter procedure [facility] Procedures Date Procedure Procedure Detail Performing Clinician Start: 06-13-[address] Natty Frias MD Work Phone: Start: 06-13-[address] Brad Frias MD Work Phone: Start: 06-06-[address] Brad Frias MD Work Phone: Comment on above: *Additional results available. Contact l aboratory/see report*The atypical pANCA pattern has been observed in asignificant percentage of patients with ulcerative colitis,primary sclerosing cholangitis and autoimmune hepatitis.Performed at: - [facility] [address] [id number] Director: Dani Tyson PhD, Phone: [phone] at: - [facility] [address] [id number] Director: Fortunato Floyd MD, Phone: [phone] Start: 06-06-2025 Antibody to centromere measurement Dr. Brad Frias MD Work Phone: Comment on above: Previous reported result: TNP AIEdited b y: INFCE on 06/11/25:1708 AMENDED REPORT 06/11/25 1708 ANTI-CENT B previously reported as: Test not performed Start: 06-06-2025 Antibody to extractable nuclear antigen measurement Dr. Brad Frias MD Work Phone: Comment on above: Previous reported result: TNP AIEdited b y: INFCE on 06/11/25:1708 AMENDED REPORT 06/11/25 1708 XIE Ab previously reported as: Test not performed Start: 06-06-2025 Antibody to DESTINY-[address] Juan Francisco Frias MD Work Phone: Comment on above: Previous reported result: TNP AIEdited b y: INFCE on 06/11/25:1708 AMENDED REPORT 06/11/25 170 ANTI-DESTINY previously reported as: Test not performed Start: 06-06-2025 Antibody to lupus La protein measurement Dr. Brad Frias MD Work Phone: Start: 06-06-2025 Antibody to SS-A measurement Dr. Juan Francisco Frias MD Work Phone: Start: 06-06-[address] Brad Frias MD Work Phone: Comment on above: Previous reported result: TNP AIEdited b y: INFCE on 06/11/25:170 AMENDED REPORT 06/11/251707 ANTICHROMATIN previously reported as: Test not performed Start: 06-06-[address] Brad Frias MD Work Phone: Start: 06-06-2025 Endomysial antibody IgA level Dr. William Frias MD Work Phone: Start: 06-06-[address] Brad Frias MD Work Phone: Start: 06-06-[address] Juan Francisco Frias MD Work Phone: Start: 06-06-2025 In-vitro immunologic test Dr. Zhang Frias MD Work Phone: Comment on above: QuantiFERON-TB Gold Plus is a qualitativ e indirect test forM tuberculosis infection (including disease) and isintended for use in conjunction with risk assessment,radiography, and other medical and diagnostic evaluations.The QuantiFERON-TB Gold Plus result is determined bysubtracting the Nil value from either TB antigen (Ag)value. The Mitogen tube serves as a control for the test. No response to M tub erculosis antigens detected.Infection with M tuberculosis is unlikely, but high riskindividuals should be considered for additional testing(ATS/IDSA/CDC Clinical Practice Guidelines, 2017). Thereference range is an Antigen minus Nil result of <0.35IU/mL.The specimen received for QuantiFERON testing was incubatedby the ordering institution. Specific procedures outlinedin our Directory of Services and in the package insert forthe QuantiFERON Gold (In Tube) test must be followed toenable for proper stimulation of cells for the productionof interferon gamma. Chemiluminescence immunoassaymethodology Start: 06-06-[address] Giovany Frias MD Work Phone: Comment on above: Negative: <45 Equivocal: 45-50 Positive: >50 Start: 06-06-2025 ENVIRONMENTAL RESOURCE SPECIALIST antibody measurement Dr. Brad Frias MD Work Phone: Comment on above: Previous reported result: TNP AIEdited b y: INFCE on 06/11/25:1708 AMENDED REPORT 06/11/25 1708 ENVIRONMENTAL RESOURCE SPECIALIST Ab previously reported as: Test not performed Start: 06-06-[address] Brad Frias MD Work Phone: Start: 05-14-2025 Human leukocyte antigen B27 antigen phenotyping Dr[address] Brad Frias MD Work Phone: Comment on above: HLA-B*27 [id number] allele interpretati on for all loci based on IMGT/HLAdatabase version 3.58This test was developed and its performance characteristicsdetermined by [employer]. It has not been cleared or approvedby the Food and Drug Administration.The FDA has determined that such clearance or approval isnot necessary.[facility] CLIA ID Number [id number] SECTION DIRECTOR: Adriel Manriquez, PhD,F([facility])This test was performed using Polymerase Chain Reaction(PCR) and Sequence Specific Oligonucleotide Probes (SSOP)technique. Sequence Based Typing (SBT) may be used as asupplemental method when necessary.If you have questions, please call [facility] customer serviceat or email at [email or web address].Performed at: [address] [place] [address] [id number] [place], [place] [id number] Director: Radha Holcomb PhD, Phone: [phone] Start: 01-18-2024 Clostridium difficile detection Start: 10-18-2023 Measurement of occult blood in gastric fluid specimen Start: 10-18-2023 Measurement of occult blood in stool specimen using immunoassay Start: 10-18-2023 Nucleic acid assay Plan of Treatment Date Care Activity Detail Author Start: 04-20-2032 Urine microalbumin profile DTaP,Tdap,Td Vaccine (8 - Td or Tdap) [facility] Start: 06-13-2025 Patient encounter procedure Registered Clinical -Laboratory Specimen Work Phone: Start: 06-13-2025 Clostridium difficile detection Clostridioides difficile (PCR) [facility] Start: 06-13-2025 Lactoferrin measurement Stool Lactoferrin [facility] Start: 06-06-2025 Protein measurement [facility] Start: 06-06-2025 [facility] Start: 05-19-2025 Influenza vaccination Influenza Vaccine (#1) [facility] Start: 05-14-2025 Human leukocyte antigen B27 antigen phenotyping [facility] Start: 02-20-2010 Anxiety Screening Anxiety Screening [facility] Start: 02-20-2010 Depression Screening Depression Screening [facility] Start: 02-20-2010 Hepatitis C screening Hepatitis C Screening [facility] Start: 02-20-2010 HIV screening HIV Screening [facility] Elastase.pancreatic [Presence] in Stool [facility] Elastase.pancreatic [Presence] in Stool [facility] Fat [Presence] in Stool [facility] HLA-B27 [Presence] b y SIDDHARTH with probe detection [facility] Nucleic acid assay [facility] Payers Date Payer Category Payer Self-pay 2024 [facility] PPO [id number] 2024 Unknown [id number] Unknown [id number] Unknown [id number] Unknown [id number] Unknown [id number] Social History Date Type Detail Facility Tobacco smoking stat [facility] Work Phone: Start: 1990 Sex Assigned At Male [facility] Start: 04-17-2025 End: 06-06-2025 Tobacco smoking status NHIS Never smoked tobacco [facility] Start: 04-17-2025 Tobacco use and exposure Smokeless tobacco non-user [facility] Start: 04-17-2025 History of Social function [facility] Start: 04-17-2025 Tobacco use panel [facility] Start: 1990 Sex assigned at Not on file [facility] Tobacco [facility] stat [facility] smoked [facility] Work Phone: Evaluation note 06-06-2025 Note Date & Type Note Facility 06-06-2025 Evaluation note Diagnosis Onset Date Resolution Ulcerative colitis acute Sept2024 1:25pm [facility] Work Phone: Progress note 06-06-2025 Note Date & Type Note Facility 06-06-2025 Progress note [facility] Progress note 06-06-2025 Note Date & Type Note Facility 06-06-2025 Progress note Note Date/Time June 06, 2025 2:10pm [facility] [address] [place] [address] OFFICE VISIT Date of Service: 06/06/25 MR#: [id number] Acct: [id number] Name: GERARDO KARIMI Rep #: [id number] : 1990 Provider: Channing Bains DO Age/Sex: 35/M Location: [facility] [place] Status: Signed Intake Intake Visit Reasons: Dx'D Ulcerative Colitis Allergies No Known Allergies Allergy (Verified 06/06/25 14:27) Medications ?Medication ?Instructions ?Recorded ?Confirmed ?Type budesonide 3 mg 9 mg PO QDAY 06/06/25 History capsule,delayed,extended release diphenoxylate-atropine 2.5 1 tab PO TID #90 tabs 06/0606/06/25 Rx mg-0.025 mg tablet (Lomotil) mesalamine 1.2 gram tablet,delayed 3.6 g PO QDAY 06/0606/06/25 History release (Lialda) prednisone 10 mg tablet 50 mg (5 x 10 mg) PO QDAY 30 days 06/06/25 06/06/25 Rx #150 tabs PFSH Medical History (Updated 06/06/25 @ 14:07 by Sherley Trejo) Ulcerative colitis Family History (Updated 06/06/25 @ 14:26 by Sherley Trejo) Other Bleeding disorder CVA (cerebral vascular accident) Heart disease Hypertension Social History (Updated 06/06/25 @ 14:26 by Sherley Trejo) Smoking Status: Never smoker alcohol intake: never substance use type: does not use what type of physical activity do you participate in: walking frequency: 1-2 times per week HPI HPI Details: GERARDO KARIMI, is a 35 M who presents to the office today for initial consult. Hewas diagnosed with refractory ulcerative colitis (UC) on maximal doses of mesalamine and budesonide?requires a step-up in therapy to achieve remission. Budesonide MMX is effective for inducing remission in tavq-kl-fvlmcnzh UC that has not responded to mesalamine, but it is not recommended for maintenance therapy. Newer guidelines from the [place] [employer] (AGA) recommend advancing to biologic agents or Janus kinase (KEVIN) inhibitors for voajtbtv-cx-fqebkm UC that is unresponsive to 5-aminosalicylates (5-ASA) like mesalamine.?He reports increased stool frequency and urgency, bloody diarrhea, abdominal cramping, and fatigue. He also reports strict adherence to prescribed mesalamine and budesonide. * Medications: * Mesalamine [4.8 g PO daily]. * Budesonide MMX [ 9 mg PO daily]. * Allergies:?No known drug allergies (NKDA).? * Laboratory Data (Pending): * Complete Blood Count (CBC) to check for anemia, leukocytosis. * Complete Metabolic Panel (CMP) to check for electrolyte imbalances. * C-reactive protein (CRP) and erythrocyte sedimentation rate (ESR) to monitor inflammatory markers. * Fecal calprotectin to assess mucosal inflammation. * Clostridioides difficile?stool toxin test to rule out infection. * Imaging/Endoscopy (Relevant findings): * Colonoscopy with biopsies revealing active inflammation despite treatment, confirming refractory disease. Endoscopic Huang score of [ 3] *BGI established 9.19.25 pt presents for second opinion. ESR / CRP Calp / Lact Serum / AB TB 5.17.25 --/ -- -- / -- -- / -- neg 8.27.25 3 / <3.00 -- / -- -- / -- -- ROS Const Constitutional: No fatigue, fever(s) or weight change ENT ENT: No difficulty swallowing Gastro GI: Positive for diarrhea and Blood in stool; No abdominal pain, belching, bloating, change in bowel habits, change in stool character, coffee ground emesis, constipation, cramping, heartburn, difficulty swallowing, feeling full early, excessive flatus, incontinent of stools, Vomiting blood/hematemesis, loose stools, Black,tarry stools, nausea/dyspepsia, pain with swallowing, vomiting or other Musc Musculoskeletal: Positive for back pain and muscle cramps; No joint pain Skin Skin: No yellowing of the eye or itchy eyes Psych Psychiatric: No anxiety and No depression Endo Endocrine: No fatigue or weight change Aller/Imm Allergy/Immunologic: No itchy eyes Todd/Lymp Hematologic/Lymphatic: No easy bleeding or easy bruising Exam Const General: cooperative, healthy appearing, comfortable, no acute distress, well developed and well groomed Nutritional Appearance: well nourished Orientation: oriented x3 Eyes Sclera: sclerae normal Resp Effort & Inspection: normal respiratory effort Auscultation: Bilateral: Clear to Auscultation Cardio Palpation: normal PMI Rate: regular rate Rhythm: regular rhythm Heart Sounds: S1 normal and S2 normal GI Inspection: normal to inspection Auscultation: normal bowel sounds Percussion: normal to percussion Palpation: no hepatosplenomegaly Rectal Exam: deferred Assessment and Plan Assessment and Plan (1) Ulcerative colitis: Status: Acute Plan: 35-year-old patient with refractory ulcerative colitis.?The patient has failed maximal-dose 5-ASA (mesalamine) and budesonide MMX induction therapy, suggestingthe disease is now hrqbhhvo-wd-mgjbao and requires a step-up to advanced therapy. The current symptoms and objective findings point towards an ongoing flare, which requires aggressive management to achieve steroid-free remission.?C. difficile?infection must be ruled out as a potential cause for the flare, especially when conventional therapies have failed.? Plan * Discontinue failed therapies:?Discontinue budesonide MMX, as it is an induction agent and has failed. Continue mesalamine, as it is often used for maintenance, although its effectiveness in this refractory case is questionable. * Initiate advanced therapy:?Begin discussions with the patient regarding advanced therapeutic options, including biologics and KEVIN inhibitors, as per 2024 AGA guidelines for icznzoxb-ng-iibizs UC. * Biologics:?Infliximab, adalimumab, golimumab, vedolizumab, and ustekinumab are all potential options. * KEVIN Inhibitors:?Oral agents like tofacitinib or upadacitinib offer an alternative mechanism of action. * Shared Decision-Making:?Discuss the risks, benefits, and administration of each option with the patient to make an informed decision. * Monitor: * Initial:?Closely monitor clinical symptoms and inflammatory markers (CRP, fecal calprotectin) after initiating the new advanced therapy. * Sustained:?Monitor regularly with repeat endoscopic evaluation to confirm mucosal healing and achieve deep remission. * Supportive Care: * Nutrition:?Advise a low-fiber, low-residue diet during flares to reduce irritation. Suggest consultation with a registered dietitian. * Hydration:?Emphasize the importance of adequate fluid intake, especially during periods of diarrhea. * Symptom Management:?Recommend warm baths for comfort and judicious use of acetaminophen for pain. Remind the patient to avoid NSAIDs, which can exacerbate UC. Orders: Orders ANCA Today K51.90 - Ulcerative colitis, unspecified, without complications Immunoglobulins G/A/M/E Today K51.90 - Ulcerative colitis, unspecified, withoutcomplications Celiac Disease Profile Today K51.90 - Ulcerative colitis, unspecified, without complications CBC W/Diff, Automated Today K51.90 - Ulcerative colitis, unspecified, without complications Comprehensive Metabolic Profil Today K51.90 - Ulcerative colitis, unspecified, without complications CRP Today K51.90 - Ulcerative colitis, unspecified, without complications Erythrocyte Sed Rate Today K51.90 - Ulcerative colitis, unspecified, without complications IBD Expanded Profile Today K51.90 - Ulcerative colitis, unspecified, without complications Allergen, Food Profile 14 Today K51.90 - Ulcerative colitis, unspecified, without complications ANTONIETTA Comprehensive Panel Today K51.90 - Ulcerative colitis, unspecified, withoutcomplications ENTERIC PATHOGEN PANEL STOOL Today K51.90 - Ulcerative colitis, unspecified, without complications, K58.9 - Irritable bowel syndrome, unspecified Stool Lactoferrin/WBC Today K51.90 - Ulcerative colitis, unspecified, without complications, K58.9 - Irritable bowel syndrome, unspecified CDIFF (PCR) Today K51.90 - Ulcerative colitis, unspecified, without complications Calprotectin, Stool Today K51.90 - Ulcerative colitis, unspecified, without complications Pancreatic Elastase, Fecal Today K51.90 - Ulcerative colitis, unspecified, without complications OVA+PARA w/Giardia EIA [id number] Today K51.90 - Ulcerative colitis, unspecified, without complications Fecal Fat, Qualitative Today K51.90 - Ulcerative colitis, unspecified, without complications Quantiferon TB-Gold+ Today K51.90 - Ulcerative colitis, unspecified, without complications Medications: New prednisone 50 mg (5 x 10 mg) PO QDAY 150 tabs 3RF 30 days diphenoxylate-atropine 2.5-0.025 mg (Lomotil) 1 TAB PO TID 90 tabs 0RF diphenoxylate-atropine 2.5-0.025 mg (Lomotil) 1 TAB PO TID 90 tabs 0RF Coding Level of Care Code Off vis,new,level 4 Diagnoses Ulcerative colitis K51.90 06/06/25 2723 <Electronically signed by Channing duncan DO> Date _ Channing Maldonado Signature: Date (if applicable) CC: ~ [facility] [employer] Work Phone: Progress note 04-17-2025 Note Date & Type Note Facility 04-17-2025 Note HNO ID: [id number] Author: JUSTIN SANTANA APRN.PHARMACY CLINICAL SPECIALIST Service: ? Author Type: Nurse Practitioner Type: Progress Notes Filed: 04/17/2025 18:16 Note Text: [facility] Subjective Gerardo Karimi is a 35 year old male. Patient presents with: Rash: Bilateral legs, arms x1 week HPI Nontoxic-appearing 35-year-old male presents urgent care chief complaint rash. Duration of symptoms 1 week. Associated symptoms pruritic rash on lower legs that has now spread to the arms and back of hand. OTC medications none recently. Denies any pain. Most bothersome symptom today is pruritus. Denies any fever body aches or chills. No recent medication changes. No antibiotic use. Overall feels well. Past medical history prescription medications allergies reviewed Review of Systems Constitutional: Negative for chills, diaphoresis, fatigue and fever. HENT: Negative for congestion, ear discharge, ear pain, rhinorrhea, sinus pressure, sinus pain, sneezing and sore throat. Eyes: Negative for pain, discharge, redness, itching and visual disturbance. Respiratory: Negative for cough, chest tightness, shortness of breath and wheezing. Cardiovascular: Negative for chest pain. Gastrointestinal: Negative for abdominal pain, constipation, diarrhea, nausea and vomiting. Musculoskeletal: Negative for joint swelling, neck pain and neck stiffness. Skin: Positive for rash. Neurological: Negative for dizziness, weakness and headaches. Objective BP 140/83 Pulse 80 Temp 36.7 ?C (98.1 ?F) Resp 18 Wt (!) 150.3 kg (331 lb 5.6 oz) SpO2 98% Physical Exam Constitutional: Appearance: Normal appearance. HENT: Head: Normocephalic. Nose: Nose normal. No congestion or rhinorrhea. Mouth/Throat: Mouth: Mucous membranes are moist. Pharynx: Oropharynx is clear. No oropharyngeal exudate or posterior oropharyngeal erythema. Eyes: Conjunctiva/sclera: Conjunctivae normal. Cardiovascular: Rate and Rhythm: Normal rate. Pulmonary: Effort: Pulmonary effort is normal. Breath sounds: Normal breath sounds. No wheezing, rhonchi or rales. Musculoskeletal: General: Normal range of motion. Cervical back: Normal range of motion and neck supple. No rigidity. Lymphadenopathy: Cervical: No cervical adenopathy. Skin: General: Skin is warm. Findings: No rash. Comments: Macular papular rash with some fluid-filled vesicles noted highlighted area. Spares palms of hands. No mucous membrane involvement or desquamation of skin. Neurological: Mental Status: He is alert. {ASSESSMENT/PLAN: 1. Rash - ICD9: 782.1, ICD10: R21 Diagnosis rash. Treat as contact dermatitis. Placed on prednisone taper and steroid cream. Encouraged to use steroid cream first if poison nimisha spreads can use prednisone taper. Patient was educated on supportive therapies. Patient will follow up with primary care provider 3 to 5 days patient was instructed to immediately proceed to emergency room for any new, worsening, or symptoms lasting longer than anticipated. The patient's clinical presentation is otherwise unremarkable at this time. Based on exam and clinical finding, the patient is stable for discharge. Plan of care was discussed with patient. Patient verbalizes understanding and agrees to plan of care. This note was generated using [employer] software. It may contain errors in wording, punctuation, or spelling. Justin Santana APRN.PHARMACY CLINICAL SPECIALIST History and Record Review Clinical information obtained from an independent historian. History obtained from or confirmed by: parent. External record(s) reviewed: prior outpatient record. Disposition The patient was discharged. Procedures [facility] History of Present illness Narrative 04-17-2025 Justin Santana APRN.PHARMACY CLINICAL SPECIALIST - 04/17/2025 6:03 PM EDT Note Date & Type Note Facility 04-17-2025 History of Presen t illness Narrative Images from the original note were not included. [facility] Subjective Gerardo Karimi is a 35 year old male. Patient presents with: Rash: Bilateral legs, arms x1 week HPI Nontoxic-appearing 35-year-old male presents urgent care chief complaint rash. Duration of symptoms 1 week. Associated symptoms pruritic rash on lower legs that has now spread to the arms and back of hand. OTC medications none recently. Denies any pain. Most bothersome symptom today is pruritus. Denies any fever body aches or chills. No recent medication changes. No antibiotic use. Overall feels well. Past medical history prescription medications allergies reviewed Review of Systems Constitutional: Negative for chills, diaphoresis, fatigue and fever. HENT: Negative for congestion, ear discharge, ear pain, rhinorrhea, sinus pressure, sinus pain, sneezing and sore throat. Eyes: Negative for pain, discharge, redness, itching and visual disturbance. Respiratory: Negative for cough, chest tightness, shortness of breath and wheezing. Cardiovascular: Negative for chest pain. Gastrointestinal: Negative for abdominal pain, constipation, diarrhea, nausea and vomiting. Musculoskeletal: Negative for joint swelling, neck pain and neck stiffness. Skin: Positive for rash. Neurological: Negative for dizziness, weakness and headaches. Objective BP 140/83 Pulse 80 Temp 36.7 C (98.1 F) Resp 18 Wt (!) 150.3 kg (331 lb 5.6 oz) SpO2 98% Physical Exam Constitutional: Appearance: Normal appearance. HENT: Head: Normocephalic. Nose: Nose normal. No congestion or rhinorrhea. Mouth/Throat: Mouth: Mucous membranes are moist. Pharynx: Oropharynx is clear. No oropharyngeal exudate or posterior oropharyngeal erythema. Eyes: Conjunctiva/sclera: Conjunctivae normal. Cardiovascular: Rate and Rhythm: Normal rate. Pulmonary: Effort: Pulmonary effort is normal. Breath sounds: Normal breath sounds. No wheezing, rhonchi or rales. Musculoskeletal: General: Normal range of motion. Cervical back: Normal range of motion and neck supple. No rigidity. Lymphadenopathy: Cervical: No cervical adenopathy. Skin: General: Skin is warm. Findings: No rash. Comments: Macular papular rash with some fluid-filled vesicles noted highlighted area. Spares palms of hands. No mucous membrane involvement or desquamation of skin. Neurological: Mental Status: He is alert. {ASSESSMENT/PLAN: 1. Rash - ICD9: 782.1, ICD10: R21 Diagnosis rash. Treat as contact dermatitis. Placed on prednisone taper and steroid cream. Encouraged to use steroid cream first if poison nimisha spreads can use prednisone taper. Patient was educated on supportive therapies. Patient will follow up with primary care provider 3 to 5 days patient was instructed to immediately proceed to emergency room for any new, worsening, or symptoms lasting longer than anticipated. The patient's clinical presentation is otherwise unremarkable at this time. Based on exam and clinical finding, the patient is stable for discharge. Plan of care was discussed with patient. Patient verbalizes understanding and agrees to plan of care. This note was generated using [employer] software. It may contain errors in wording, punctuation, or spelling. Justin Santana APRN.PHARMACY CLINICAL SPECIALIST History and Record Review Clinical information obtained from an independent historian. History obtained from or confirmed by: parent. External record(s) reviewed: prior outpatient record. Disposition The patient was discharged. Procedures documented in this encounter [facility] Evaluation note Note Date & Type Note Facility Evaluation note No assessment information availa ble [facility] Work Phone: Evaluation note Note Date & Type Note Facility Evaluation note Diagnosis Rash- Primary Rash and other nonspecific skin eruption documented in this encounter [facility] Evaluation note Note Date & Type Note Facility Evaluation note Diagnosis Onset Date Resolution Ulcerative colitis acute Septem 2024 1:25pm [facility] Work Phone: Reason for referral (narrative) Note Date & Type Note Facility Reason for referral (narrative) No reason for referral information available [facility] Work Phone: Chief Complaint and Reason for Visit Chief Complaint STOOL DROPOFF Chief Complaint Admit Date Dx'D Ulcerative Colitis June 06, 2025 1:25pm E ORDERS June 06, 2025 2:11pm Reason for Visit Admit Date Ulcerative colitis June 06, 2025 1:25pm Summary Purpose Family History Relationship Condition Age at Onset Recorded Date/T juan Not Specified Cardiac disease Unknown Hemorrhagic disorder Unknown Hypertension Unknown Cerebrovascular accident (CVA) Unknown Advance Directives No Advanced Directives Records FoundNo Advanced Directives Records Found Additional Source Comments Care Teams (unrecognized sec tion and content) Team Status: Active Member Role Status Dates Dr. Fidel Castorena MD Primary Care Provider Active Team Status: Inactive Member Role Status Dates Dr. Fidel Castorena MD Primary Care Provider, Attending Provider Active Team Status: Inactive Member Role Status Dates Dr. Fidel Castorena MD Primary Care Provider Active Dr. Zhang Frias MD Attending Provider Active Team Status: Inactive Member Role Status Dates Dr. Fidel Castorena MD Primary Care Provider Active Dr. Brad Frias MD Attending Provider Active Team Status: Inactive Member Role Status Dates Dr. Fidel Castorena MD Primary Care Provider Active Dr. Dani Villa MD Attending Provider, Referring Provider Active Team Status: Active Member Role/Relationship Status Dates Dr. Brad Frias MD Primary Care Provider Acti ve Team Status: Inactive Member Role/Relationship Status Dates Dr. Brad Frias MD Primary Care Provider Acti ve Start: May 14, 2025 End: May 14, 2025 Dr. Dani Villa MD Attending Provider Active Start: May 14, 2025 End: May 14, 2025 Dr. Dani Villa MD Referring Provider Active Start: May 14, 2025 End: May 14, 2025 Team Status: Active Member Role/Relationship Status Dates Dr. Brad Frias MD Primary care physician Act marianela Team Status: Inactive Member Role/Relationship Status Dates Dr. Brad Frias MD Primary care physician Act marianela Start: May 14, 2025 End: May 14, 2025 Dr. Dani Villa MD Attending physician Active Start: May 14, 2025 End: May 14, 2025 Dr. Dani Villa MD Referring Provider Active Start: May 14, 2025 End: May 14, 2025 Team Status: Inactive Member Role/Relationship Status Dates Dr. Channing Bains DO Attending physician Active Start: June 06, 2025 End: June 06, 2025 Dr. Brad Frias MD Primary care physician Act marianela Start: June 06, 2025 End: June 06, 2025 Dr. Brad Frias MD Referring Provider Active Start: June 06, 2025 End: June 06, 2025 Team Status: Active Member Role/Relationship Status Dates Dr. Brad Frias MD Primary care physician Act marianela Start: June 06, 2025 Dr. Channing Bains DO Attending physician Active Start: June 06, 2025 Dr. Channing Bains DO Referring Provider Active Start: June 06, 2025 Team Status: Active Member Role/Relationship Status Dates Dr. Brad Frias MD Primary care physician Act marianela Start: June 13, 2025 Dr. Channing Bains DO Attending physician Active Start: June 13, 2025 Dr. Channing Bains DO Referring Provider Active Start: June 13, 2025 Team Status: Inactive Member Role/Relationship Status Dates Dr. Brad Frias MD Primary care physician Act marianela Start: June 06, 2025 End: June 06, 2025 Dr. Channing Bains DO Attending physician Active Start: June 06, 2025 End: June 06, 2025 Dr. Snell Friend , DO Referring Provider Active Start: June 06, 2025 End: June 06, 2025 Goals (unrecognized section and content) Goals may be documented in a n alternate sectionGoals may be documented in an alternate sectionGoals may be documented in an alternate sectionGoals may be documented in an alternate sectionGoals may be documented in an alternate sectionGoals may be documented in an alternate sectionGoals may be documented in an alternate section Source Comments (unrecognize d section and content) In the event this informatio n is protected by the Federal Confidentiality of Alcohol and Drug Abuse Patient Records regulations: The Federal rules restrict any use of the information to criminally investigate or prosecute any alcohol or drug abuse patient.[facility] Reason for Visit (unrecogniz ed section and content) Reason Comments Rash Bilateral legs, arms x1 week (unrecognized sect ion and content) No Status Records FoundNo Status Records Found INFORMATION SOURCE (unrecogn ized section and content) DATE CREATED AUTHOR 04/20/2025 [facility] DATE CREATED AUTHOR AUTHOR'S ELMA WHALEY 06/21/2025 [facility] FOR RECORDS PERTAINING TO PATIENTS WHO ARE [...] BE BASED ON THE PRIMARY CLINICAL RECORDS. [employer] provides no warranty or guarantee of the accuracy or completeness of information in this document.
[2025-06-25 15:08] LABS: Pancreatic Elastase, Fecal > 800 (>200)
[2025-06-26 08:08] LABS: Calprotectin, Stool 1800 ug/g (0-120); Fats, Neutral Normal (.); Fats, Total Increased (.)
== END | disposition home or self-care (01) ==
LOC: LABSPEC 11:49
PROVIDERS: PCP Family Medicine; Referring Provider Internal Medicine Gastroenterology; Visit Provider Internal Medicine Gastroenterology
DX: K51.90 Ulcerative colitis, unspecified, without complications (principal)
CPT/HCPCS: 82653; 82705; 83993; 87177; 87209; 87329; 87506